=== PATIENT | female | born 1930 | race Hispanic/Latino ===

== ENCOUNTER 2017-07-22 10:12 | Inpatient (IN) | payer OTHER ==
[2017-07-22 11:28] LABS: Absolute Lymphocytes (CBC) 1.5 K/uL (0.7-4.9); Absolute Monocytes 0.6 K/uL (0.1-1.3); Absolute Neutrophil 3.3 K/uL (1.8-8.0); Eosinophils % 4.6 % (0-4.4); Hematocrit 40.3 % (36.0-45.0); Lymphocytes % 26.8 % (15.3-44.8); MCH 31.2 pg (27.0-35.0); MCV 93.9 fL (80-100); MPV 10.2 fL (7.6-11.3); Monocytes % 9.9 % (3.3-12.3); RBC Red Blood Cell Count 4.29 M/uL (3.86-4.86)
--- NOTE | 2017-07-22 11:28 | EDPHYS ---
Physician Documentation [facility] Name: Grisel Ray Age: 87 yrs Sex: Female : 1930 Arrival Date: 07/22/2017 Time: 10:15 Bed 2 Private MD: ED Physician Fransico Rodriguez HPI: 07/22 11:23 This 87 yrs old Female presents to ER via Ambulatory with complaints of Chest prabhakar Pain, High Blood Pressure. 11:23 The patient or guardian reports chest pain that is located primarily in the substernal prabhakar area, anterior chest wall. Onset: 3 day(s) ago. The pain does not radiate. Associated signs and symptoms: The patient has no apparent associated signs or symptoms. The chest pain is described as squeezing. Duration: The patient or guardian reports multiple episodes, with no pattern. Modifying factors: The symptoms are alleviated by nothing. the symptoms are aggravated by nothing. Severity of pain: At its worst the pain was mild moderate in the emergency department the pain is unchanged. The patient has experienced similar episodes in the past, a few times. Historical: - Allergies: 10:31 No Known Allergies; hb - Home Meds: 10:31 levothyroxine 75 mcg tab 1 tab once daily [Active]; hb 11:06 Protonix 40 mg Oral TbEC 1 tab once daily [Active]; sv - PMHx: 10:31 Hypertension; Hypothyroidism; hb - PSHx: 10:31 Cholecystectomy; hb - Immunization history:: Adult Immunizations up to date. - Social history:: Smoking status: Patient/guardian denies using tobacco. - Family history:: not pertinent. ROS: 11:23 Constitutional: Negative for fever, chills, and weight loss, Eyes: Negative for injury, prabhakar pain, redness, and discharge, ENT: Negative for injury, pain, and discharge, Neck: Negative for injury, pain, and swelling, Respiratory: Negative for shortness of breath, cough, wheezing, and pleuritic chest pain, Abdomen/GI: Negative for abdominal pain, nausea, vomiting, diarrhea, and constipation, Back: Negative for injury and pain, : Negative for injury, bleeding, discharge, and swelling, MS/Extremity: Negative for injury and deformity, Skin: Negative for injury, rash, and discoloration, Neuro: Negative for headache, weakness, numbness, tingling, and seizure, Psych: Negative for depression, anxiety, suicide ideation, homicidal ideation, and hallucinations, Allergy/Immunology: Negative for hives, rash, and allergies, Endocrine: Negative for neck swelling, polydipsia, polyuria, polyphagia, and marked weight changes, Hematologic/Lymphatic: Negative for swollen nodes, abnormal bleeding, and unusual bruising. 11:23 Cardiovascular: Positive for chest pain, with cough. Exam: 11:23 Constitutional: This is a well developed, well nourished patient who is awake, alert, prabhakar and in no acute distress. Head/Face: Normocephalic, atraumatic. Eyes: Pupils equal round and reactive to light, extra-ocular motions intact. Lids and lashes normal. Conjunctiva and sclera are non-icteric and not injected. Cornea within normal limits. Periorbital areas with no swelling, redness, or edema. ENT: Nares patent. No nasal discharge, no septal abnormalities noted. Tympanic membranes are normal and external auditory canals are clear. Oropharynx with no redness, swelling, or masses, exudates, or evidence of obstruction, uvula midline. Mucous membranes moist. Neck: Trachea midline, no thyromegaly or masses palpated, and no cervical lymphadenopathy. Supple, full range of motion without nuchal rigidity, or vertebral point tenderness. No Meningismus. Chest/axilla: Normal chest wall appearance and motion. Nontender with no deformity. No lesions are appreciated. Cardiovascular: Regular rate and rhythm with a normal S1 and S2. No gallops, murmurs, or rubs. Normal PMI, no JVD. No pulse deficits. Respiratory: Lungs have equal breath sounds bilaterally, clear to auscultation and percussion. No rales, rhonchi or wheezes noted. No increased work of breathing, no retractions or nasal flaring. Abdomen/GI: Soft, non-tender, with normal bowel sounds. No distension or tympany. No guarding or rebound. No evidence of tenderness throughout. Back: No spinal tenderness. No costovertebral tenderness. Full range of motion. Skin: Warm, dry with normal turgor. Normal color with no rashes, no lesions, and no evidence of cellulitis. MS/ Extremity: Pulses equal, no cyanosis. Neurovascular intact. Full, normal range of motion. Neuro: Awake and alert, GCS 15, oriented to person, place, time, and situation. Cranial nerves II-XII grossly intact. Motor strength 5/5 in all extremities. Sensory grossly intact. Cerebellar exam normal. Normal gait. Psych: Awake, alert, with orientation to person, place and time. Behavior, mood, and affect are within normal limits. Vital Signs: 10:30 BP 223 / 109; Pulse 89; Resp 18; Temp 98; Pulse Ox 96% on R/A; Pain 0/10; hb 11:30 BP 203 / 94; Pulse 74; Resp 15; Pulse Ox 96% on R/A; sv 11:43 Weight 65.77 kg; sv 12:00 BP 185 / 109; Pulse 78; Resp 20; Pulse Ox 96% on R/A; sv 12:30 BP 175 / 68; Pulse 74; Resp 17; Pulse Ox 95% ; sv 13:00 BP 195 / 62; Pulse 74; Resp 36; Pulse Ox 96% on 2 lpm NC; sv 13:30 BP 154 / 74; Pulse 61; Resp 21; Pulse Ox 97% on 2 lpm NC; sv 14:15 BP 108 / 51; Pulse 55 MON; Resp 16; Pulse Ox 98% on 2 lpm NC; sv 14:15 Sinus bradycardia with Occasional PVCs sv MDM: 10:52 Patient medically screened. [facility] 11:38 Data reviewed: vital signs, nurses notes, lab test result(s), EKG, radiologic studies, prabhakar plain films. 07/22 10:46 Order name: Basic Metabolic Panel; Complete Time: 13:07/22 10:46 Order name: BNP; Complete Time: 13:07/22 10:46 Order name: CBC with Diff; Complete Time: 11:38 07/22 10:46 Order name: Ckmb; Complete Time: 13:07/22 10:46 Order name: CPK; Complete Time: 13:07/22 10:46 Order name: LFT's; Complete Time: 13:07/22 10:46 Order name: Magnesium; Complete Time: 13:07/22 10:46 Order name: PT-INR; Complete Time: 13:03 07/22 10:46 Order name: Ptt, Activated; Complete Time: 13:03 07/22 10:46 Order name: Troponin (emerg Dept Use Only); Complete Time: 13:03 sv 07/22 10:52 Order name: Lipase prabhakar 07/22 10:52 Order name: TSH prabhakar 07/22 11:39 Order name: Basic Metabolic Panel EDMS 07/22 11:39 Order name: Basic Metabolic Panel EDMS 07/22 10:46 Order name: XRAY Chest (1 view); Complete Time: 13:03 sv 07/22 11:39 Order name: Echo with Doppler EDMS 07/22 11:39 Order name: CBC with Automated Diff EDMS 07/22 11:39 Order name: CBC with Automated Diff EDMS 07/22 11:39 Order name: Troponin I EDMS 07/22 11:39 Order name: Troponin I EDMS 07/22 11:39 Order name: Troponin I EDMS 07/22 11:39 Order name: Chest Single View EDMS 07/22 11:39 Order name: Chest Single View EDMS 07/22 13:54 Order name: T4 Free EDMS 07/22 10:46 Order name: EKG; Complete Time: 10:47 sv 07/22 10:46 Order name: Cardiac monitoring; Complete Time: 11:08 sv 07/22 10:46 Order name: EKG - Nurse/Tech; Complete Time: 11:08 sv 07/22 10:46 Order name: IV Saline Lock; Complete Time: 11:08 sv 07/22 10:46 Order name: Labs collected and sent; Complete Time: 11:08 sv 07/22 10:46 Order name: O2 Per Protocol; Complete Time: 11:08 sv 07/22 10:46 Order name: O2 Sat Monitoring; Complete Time: 11:08 sv 07/22 11:39 Order name: CONS Physician Consult EDMS 07/22 11:39 Order name: CONS Physician Consult EDMS 07/22 11:39 Order name: Consistent Carb (ADA) [address] EDMS 07/22 11:39 Order name: EKG Electrocardiogram EDMS 07/22 11:39 Order name: EKG Electrocardiogram EDMS 07/22 11:39 Order name: EKG Electrocardiogram EDMS 07/22 11:39 Order name: EKG Electrocardiogram EDMS 07/22 13:03 Order name: EKG; Complete Time: 13:03 prabhakar 07/22 13:03 Order name: EKG - Nurse/Tech; Complete Time: 13:22 prabhakar Administered Medications: 12:00 Drug: NS 0.9% 1000 ml Route: IV; Rate: 75 ml/hr; Site: left forearm; sv 14:20 Follow up: Response: No adverse reaction; IV Status: Infusion continued upon admission sv 12:00 Drug: Lopressor (metoprolol TARTRATE) 50 mg Route: PO; sv 12:30 Follow up: Response: No adverse reaction sv 12:00 Drug: hydrALAZINE 10 mg Route: PO; sv 12:30 Follow up: Response: No adverse reaction sv 12:00 Drug: Aspirin 162 mg Route: PO; sv 12:30 Follow up: Response: No adverse reaction sv 12:02 Drug: hydrALAZINE 10 mg Route: IV; Rate: per protocol; Site: left forearm; sv 12:04 Follow up: Response: No adverse reaction; IV Status: Completed infusion; IV Intake: sv 0.5ml 12:04 Drug: Pepcid 20 mg Route: IVP; Site: left forearm; sv 12:30 Follow up: Response: No adverse reaction sv 12:06 Drug: Zofran 4 mg Route: IVP; Site: left forearm; sv 12:30 Follow up: Response: No adverse reaction sv 12:08 Drug: morphine 2 mg Route: IVP; Site: left forearm; sv 12:30 Follow up: Response: No adverse reaction sv 12:11 Drug: Lovenox 1 mg/kg Route: Sub-Q; Site: left lower abdomen; sv 12:30 Follow up: Response: No adverse reaction sv 13:08 Drug: hydrALAZINE 10 mg Route: IV; Rate: per protocol; Site: left forearm; sv 13:10 Follow up: IV Status: Completed infusion; IV Intake: 0.5ml sv 14:02 Follow up: Response: No adverse reaction sv 13:08 Drug: Nitro-Bid Ointment 2 % 1 inches Route: Transdermal; Site: anterior chest wall; sv 13:16 Drug: Zofran 4 mg Route: IVP; Site: left forearm; sv 14:03 Follow up: Response: No adverse reaction sv 13:18 Drug: morphine 2 mg Route: IVP; Site: left forearm; sv 14:03 Follow up: Response: No adverse reaction sv 13:22 CANCELLED (Duplicate Order): morphine 2 mg IVP once sv 13:22 CANCELLED (Duplicate Order): Zofran 4 mg IVP once; over 2 minutes sv 14:02 Not Given (not needed at this time): morphine 2 mg IVP once sv Disposition: 07/22/17 11:27 Hospitalization ordered by Titus Coats for Inpatient Admission. Preliminary diagnosis are Other chest pain, Essential (primary) hypertension. - Bed requested for Telemetry/MedSurg (Inpatient). - Status is Inpatient Admission. sv - Condition is Stable. - Problem is new. - Symptoms have improved. UTI on Admission? No Signatures: Dispatcher [employer] EDMS Odalis Mccray Stephanie, RN RN Fransico Gonzalez MD MD cha Baxter, Heather, RN RN Corrections: (The following items were deleted from the chart) 13:13 11:27 Hospitalization Ordered by A Pauly CARRERO for Inpatient Admission. Preliminary bd diagnosis is Other chest pain; Essential (primary) hypertension. Bed requested for Telemetry/MedSurg (Inpatient). Status is Inpatient Admission. Condition is Stable. Problem is new. Symptoms have improved. UTI on Admission? No. prabhakar 13:22 13:11 morphine 2 mg IVP once ordered. formerly [facility] 13:22 13:11 Zofran 4 mg IVP once; over 2 minutes ordered. [facility] sv 14:45 13:13 07/22/2017 11:27 Hospitalization Ordered by A Pauly CARRERO for Inpatient Admission. sv Preliminary diagnosis is Other chest pain; Essential (primary) hypertension. Bed requested for Telemetry/MedSurg (Inpatient). Status is Inpatient Admission. Condition is Stable. Problem is new. Symptoms have improved. UTI on Admission? No. bd
--- NOTE | 2017-07-22 11:28 | ER ---
Nurse's Notes [facility] Name: Grisel Ray Age: 87 yrs Sex: Female : 1930 Arrival Date: 07/22/2017 Time: 10:15 Bed 2 Private MD: Diagnosis: Other chest pain;Essential (primary) hypertension Presentation: 07/22 10:27 Presenting complaint: Patient states: Intermittent dull left sided chest pain and SOB x hb 1 week. Transition of care: patient was not received from another setting of care. Onset of symptoms is unknown. Initial Sepsis Screen: Does the patient meet any 2 criteria? No. Patient's initial sepsis screen is negative. Does the patient have a suspected source of infection? No. Patient's initial sepsis screen is negative. Care prior to arrival: None. 10:27 Method Of Arrival: Ambulatory hb 10:27 Acuity: DAYRON 3 hb Historical: - Allergies: 10:31 No Known Allergies; hb - Home Meds: 10:31 levothyroxine 75 mcg tab 1 tab once daily [Active]; hb 11:06 Protonix 40 mg Oral TbEC 1 tab once daily [Active]; sv - PMHx: 10:31 Hypertension; Hypothyroidism; hb - PSHx: 10:31 Cholecystectomy; hb - Immunization history:: Adult Immunizations up to date. - Social history:: Smoking status: Patient/guardian denies using tobacco. - Family history:: not pertinent. Screenin:50 Abuse screen: Denies threats or abuse. Denies injuries from another. Nutritional sv screening: No deficits noted. Tuberculosis screening: No symptoms or risk factors identified. Fall Risk None identified. Assessment: 10:50 General: Appears uncomfortable, well developed, Behavior is calm, cooperative, sv appropriate for age. Pain: Complains of pain in left nipple Pain radiates to left arm Pain currently is 2 out of 10 on a pain scale. Quality of pain is described as dull, Pain began 2-3 days ago. Is intermittent, Alleviated by nothing. Aggravated by exercise, increased activity. Neuro: Level of Consciousness is awake, alert, obeys commands, Oriented to person, place, time, situation, Moves all extremities. Full function Speech is normal. Cardiovascular: Heart tones S1 S2 present Capillary refill < 3 seconds is brisk in bilateral fingers Patient's skin is warm and dry. Pulses are 3+ in right radial artery and left radial artery Rhythm is sinus rhythm with couplets. Respiratory: Reports shortness of breath at rest on exertion Respiratory effort is even, unlabored, Respiratory pattern is regular, symmetrical, Breath sounds are clear bilaterally. GI: No signs and/or symptoms were reported involving the gastrointestinal system. : No signs and/or symptoms were reported regarding the genitourinary system. EENT: No signs and/or symptoms were reported regarding the EENT system. Derm: Skin is pink, warm \T\ dry. Musculoskeletal: Range of motion: intact in all extremities. 11:06 Reassessment: Pt was told by her PCP to stop taking Norvasc 5 mg BID, Tramterene/HCTZ sv 37.5/25 mg daily, Metoprolol succ 50 mg daily about 2 weeks ago. 12:00 Reassessment: Patient appears in no apparent distress at this time. No changes from sv previously documented assessment. Patient and/or family updated on plan of care and expected duration. Pain level reassessed. Patient is alert, oriented x 3, equal unlabored respirations, skin warm/dry/pink. 13:05 Cardiovascular: Chest pain is described as severe, Pain is 8 out of 10 on a pain scale. sv quality is sharp, is located in left anterior chest wall began suddenly, episodes are continuous Informed Dr Rodriguez, orders given.. 14:16 Reassessment: Patient appears in no apparent distress at this time. Patient and/or sv family updated on plan of care and expected duration. Pain level reassessed. Patient is alert, oriented x 3, equal unlabored respirations, skin warm/dry/pink. Patient denies pain at this time. Patient states feeling better. Patient states symptoms have improved. Vital Signs: 10:30 BP 223 / 109; Pulse 89; Resp 18; Temp 98; Pulse Ox 96% on R/A; Pain 0/10; hb 11:30 BP 203 / 94; Pulse 74; Resp 15; Pulse Ox 96% on R/A; sv 11:43 Weight 65.77 kg; sv 12:00 BP 185 / 109; Pulse 78; Resp 20; Pulse Ox 96% on R/A; sv 12:30 BP 175 / 68; Pulse 74; Resp 17; Pulse Ox 95% ; sv 13:00 BP 195 / 62; Pulse 74; Resp 36; Pulse Ox 96% on 2 lpm NC; sv 13:30 BP 154 / 74; Pulse 61; Resp 21; Pulse Ox 97% on 2 lpm NC; sv 14:15 BP 108 / 51; Pulse 55 MON; Resp 16; Pulse Ox 98% on 2 lpm NC; sv 14:15 Sinus bradycardia with Occasional PVCs sv ED Course: 10:15 Patient arrived in ED. mr 10:30 Triage completed. hb 10:31 Arm band placed on left wrist. hb 10:44 EKG done, by quality assurance tech. reviewed by Fransico Rodriguez MD. sm3 10:45 Macie Pantoja, RN is Primary Nurse. sv 10:50 Patient has correct armband on for positive identification. Placed in gown. Bed in low sv position. Call light in reach. Side rails up X2. Adult w/ patient. monitor worker on. Pulse ox on. NIBP on. Door closed. Warm blanket given. Pillow given. Head of bed elevated. 10:51 Fransico Rodriguez MD is Attending Physician. prabhakar 11:00 Initial lab(s) drawn, by ga, sent to lab. Inserted saline lock: 20 gauge in left sv forearm, using aseptic technique. Blood collected. Flushed left forearm with 5 ml normal saline. 11:25 Titus Coats MD is Hospitalizing Provider. prabhakar 11:38 X-ray completed. Portable x-ray completed in exam room. Patient tolerated procedure mh1 well. 11:42 XRAY Chest (1 view) In Process Unspecified. EDMS 13:00 Oxygen administration via nasal cannula \T\ 2L/min. sv 13:16 EKG done, by quality assurance tech. reviewed by Fransico Rodriguez MD. 3 14:16 No provider procedures requiring assistance completed. Patient admitted, IV remains in sv place. intact. Administered Medications: 12:00 Drug: NS 0.9% 1000 ml Route: IV; Rate: 75 ml/hr; Site: left forearm; sv 14:20 Follow up: Response: No adverse reaction; IV Status: Infusion continued upon admission sv 12:00 Drug: Lopressor (metoprolol TARTRATE) 50 mg Route: PO; sv 12:30 Follow up: Response: No adverse reaction sv 12:00 Drug: hydrALAZINE 10 mg Route: PO; sv 12:30 Follow up: Response: No adverse reaction sv 12:00 Drug: Aspirin 162 mg Route: PO; sv 12:30 Follow up: Response: No adverse reaction sv 12:02 Drug: hydrALAZINE 10 mg Route: IV; Rate: per protocol; Site: left forearm; sv 12:04 Follow up: Response: No adverse reaction; IV Status: Completed infusion; IV Intake: sv 0.5ml 12:04 Drug: Pepcid 20 mg Route: IVP; Site: left forearm; sv 12:30 Follow up: Response: No adverse reaction sv 12:06 Drug: Zofran 4 mg Route: IVP; Site: left forearm; sv 12:30 Follow up: Response: No adverse reaction sv 12:08 Drug: morphine 2 mg Route: IVP; Site: left forearm; sv 12:30 Follow up: Response: No adverse reaction sv 12:11 Drug: Lovenox 1 mg/kg Route: Sub-Q; Site: left lower abdomen; sv 12:30 Follow up: Response: No adverse reaction sv 13:08 Drug: hydrALAZINE 10 mg Route: IV; Rate: per protocol; Site: left forearm; sv 13:10 Follow up: IV Status: Completed infusion; IV Intake: 0.5ml sv 14:02 Follow up: Response: No adverse reaction sv 13:08 Drug: Nitro-Bid Ointment 2 % 1 inches Route: Transdermal; Site: anterior chest wall; sv 13:16 Drug: Zofran 4 mg Route: IVP; Site: left forearm; sv 14:03 Follow up: Response: No adverse reaction sv 13:18 Drug: morphine 2 mg Route: IVP; Site: left forearm; sv 14:03 Follow up: Response: No adverse reaction sv 13:22 CANCELLED (Duplicate Order): morphine 2 mg IVP once sv 13:22 CANCELLED (Duplicate Order): Zofran 4 mg IVP once; over 2 minutes sv 14:02 Not Given (not needed at this time): morphine 2 mg IVP once sv Intake: 12:04 IV: 1ml; Total: 1ml. sv 13:10 IV: 1ml; Total: 1ml. sv Outcome: 11:27 Decision to Hospitalize by Provider. prabhakar 14:17 Admitted to Tele accompanied by tech, via stretcher, room 426, with oxygen, with chart, sv Report called to Lacy SMITH 14:17 Condition: stable 14:17 Condition: improved 14:17 Instructed on the need for admit. 14:45 Patient left the ED. sv Signatures: Dispatcher [employer] Macie Mattson RN RN sv Anderson, Corey, MD MD cha Rivera, Maria mr SatyaYarelis 1 Purnima Sanders RN RN Siena Silva 3
[2017-07-22] MEDS ORDERED: Morphine 2 MG/2 ML SYR IV PRN (11:33)
[2017-07-22] MEDS ORDERED: ONDANSETRON 4 MG/2 ML VIAL IV PRN (11:33)
[2017-07-22 11:38] LABS: Protime INR 1.02
[2017-07-22] MEDS ORDERED: ASPIRIN 81 MG CHEWABLE TABLET ONE (11:46)
[2017-07-22] MEDS ORDERED: FAMOTIDINE 20 MG/2 ML VIAL IV ONE (11:47)
[2017-07-22] MEDS ORDERED: HYDRALAZINE HCL 20 MG/ML VIAL ONE ×2 (11:47→13:06)
[2017-07-22] MEDS ORDERED: NA CHLORIDE 0.9% 1,000 ML ONE (11:47)
[2017-07-22] MEDS ORDERED: Morphine 2 MG/2 ML SYR ONE ×2 (11:48→13:16)
[2017-07-22] MEDS ORDERED: ENOXAPARIN 60 MG/0.6 ML SQ ONE (11:49)
[2017-07-22 11:51] LABS: CKMB Creatine Kinase MB 1.3 ng/ml (0.3-4.0); Potassium 3.6 mEq/L (3.6-5.0)
[2017-07-22 11:57] LABS: Bilirubin Direct 0.2 mg/dL (0-0.2); Bilirubin Total 1.1 mg/dL (0.3-1.2); Magnesium 1.8 mg/dL (1.8-2.5)
--- NOTE | 2017-07-22 12:45 | RAD REPORT ---
EXAM DESCRIPTION: RAD - Chest Single View - 07/22/2017 11:41 am CLINICAL HISTORY: Chest pain. COMPARISON: 09/17/2016 FINDINGS: Portable technique limits examination quality. The lungs are emphysematous but grossly clear. The heart is normal in size. No displaced fractures.Le voscoliosis is present of the spine. IMPRESSION: COPD.
[2017-07-22 13:00] LABS: Thyroid Stimulating Hormone 8.47 uIU/mL (0.34-5.60)
[2017-07-22] MEDS ORDERED: NITROGLYCERIN 1 GM PKT TD ONE ×2 (13:04→13:15)
[2017-07-22] MEDS ORDERED: ONDANSETRON 4 MG/2 ML VIAL ONE (13:15)
--- NOTE | 2017-07-22 14:39 | EKG ---
Test Date: 2017-07-22 Test Time: 13:16:00 Basket Machine Operator: HAN MEASUREMENT RESULTS: Intervals: Rate: 70 KS: 176 QRSD: 88 QT: 438 QTc: 473 [place]: P: 52 KS: 176 QRS: 8 T: 23 INTERPRETIVE STATEMENTS: Sinus rhythm with frequent premature ventricular complexes in a pattern of bigeminy Abnormal ECG Compared to ECG 07/22/2017 10:44:16 ST (T wave) deviation no longer present Electronically Signed On 07-22-17 14:38:46 CDT by Lars Correia
--- NOTE | 2017-07-22 14:42 | EKG ---
Test Date: 2017-07-22 Test Time: 10:44:16 Dining Service Worker: HAN MEASUREMENT RESULTS: Intervals: Rate: 81 [place]: 176 QRSD: 90 QT: 400 QTc: 464 Baxter: P: 50 AZ: 176 QRS: 22 T: -16 INTERPRETIVE STATEMENTS: Sinus rhythm with occasional premature ventricular complexes Nonspecific ST and T wave abnormality Abnormal ECG Compared to ECG 09/18/2016 02:38:01 ST (T wave) deviation now present T-wave abnormality no longer present Prolonged QT interval no longer present Electronically Signed On 07-22-17 14:42:01 CDT by Lars Correia
[2017-07-22 14:54] VITALS: BMI 29.0
[2017-07-22] MEDS ORDERED: PNEUMOCOCCAL VACCINE 0.5 ML IMVAC ONE (16:00)
--- NOTE | 2017-07-22 16:57 | CON ---
Identification: An 87-year-old woman. Chief Complaint: Chest pain. History Of Present Illness: Ms. Ray is a woman, who has not had heart disease before. She has underlying hypertension hypothyroidism, takes Protonix, levothyroxine, triamterene, and hydrochlorot hiazide daily. She has never been diagnosed with myocardial infarction or stroke. About a year ago, she was in at our hospital and had normal echo and stress test. She does not use tobacco. Does not have diabetes or dyslipidemia. The pain she has is the upper part of her chest feels like there is heaviness. It was bad about 2 hours ago, went away without any apparent thing, that was the relievin g factor. Since being here in the hospital, an echocardiogram reveals premature ventricular complexe s. There is an ST depression on her first EKG and for the most part improved or disappeared by the s econd one. Since being here, her troponins are normal. She has mildly elevated TSH suggesting perha ps the dose of thyroid medicine she is on is inadequate or she has been missing doses. Physical Examination: Vital Signs: 5 Feet tall, 149 pounds, body mass index 29.1. HEENT: Unremarkable. NECK: Carotids; no bruit. Lungs: Clear. CARDIAC: Within normal limits. EXTREMITIES: Palpable, but diminished distal pulses. Impression: The patient's chest pain could be due to ischemic heart disease. It is probably best to consider strictly medical therapy for her rather than interventional because of her age, but we coul d get an idea if there is very severe CAD by doing a pharmacologic nuclear stress test. We will do that desahwn VILLASENOR/SARAH Voice ID: [id number] Report ID: [id number]
[2017-07-22] MEDS: METOPROLOL TAR 50 MG TAB PO SCH (21:50)
[2017-07-22] MEDS: FAMOTIDINE 20 MG TAB PO SCH (21:51)
[2017-07-22] MEDS: HYDRALAZINE HCL 10 MG TABLET PO SCH (21:51)
[2017-07-23] MEDS: ACETAMINOPHEN 500 MG TAB PO PRN ×2 (04:19→11:41)
[2017-07-23 06:08] LABS: Absolute Lymphocytes (CBC) 1.2 K/uL (0.7-4.9); Absolute Monocytes 0.7 K/uL (0.1-1.3); Absolute Neutrophil 4.1 K/uL (1.8-8.0); Basophils % 1.1 % (0-1.3); Eosinophils % 2.5 % (0-4.4); Hematocrit 35.6 % (36.0-45.0); Lymphocytes % 19.1 % (15.3-44.8); MCH 31.1 pg (27.0-35.0); MCV 94.8 fL (80-100); MPV 9.9 fL (7.6-11.3); RBC Red Blood Cell Count 3.76 M/uL (3.86-4.86)
[2017-07-23 06:16] LABS: Potassium 3.7 mEq/L (3.6-5.0)
--- NOTE | 2017-07-23 06:43 | HP ---
Date of Admission: 07/22/2017 Chief Complaint: Chest pain. History Of Present Illness: This is an 87-year-old female patient, who presented to emergency room w ith complaints of chest pain for last 2-3 days. The patient says pain has been intermittent, located in the center and slightly left to the sternal area. No aggravating or relieving factors. [place] kulwinder short of breath with the chest pain. No fever or chills. No expectoration. No radiation of lang n. She came into the emergency room. Her blood pressure initially was extremely elevated 223/109. After she was treated in the emergency room, I was contacted requesting admission to the hospital. C ardiology consultation has been obtained. Allergies: NO KNOWN ALLERGIES. Review of Systems: Cardiovascular: As mentioned above. All other systems reviewed and negative. Medications: List reviewed. Past Medical History: Osteoarthritis, hypothyroidism, hypertension, hyperlipidemia. Past Surgical History: Cholecystectomy, removal of ovarian cyst, and knee replacement. Family History: Significant for diabetes mellitus, liver cancer, kidney cancer. Social History: Prior history of smoking, not at present time. Use of alcohol, occasionally has one drink, otherwise negative. Physical Examination: Vital Signs: Temperature 98, pulse 89, respiratory rate 18, blood pressure 223/109, oxygen saturatio n 96%. Height 5 feet. Weight 149 pounds. General: Awake, alert, oriented, not in distress. HEENT: Head atraumatic, normocephalic. Conjunctivae nonerythematous. Sclerae white. Mouth, no thr ush or edema noted. Ears/Nose, no mass, lesion, discharge noted. Neck: Supple. No JVD, lymph nodes, bruit, thyromegaly noted. Lungs: Bilateral good equal air entry. Clear to auscultation. No rhonchi. No rales. Heart: Normal heart sounds, no murmur or gallop. Abdomen: Soft, bowel sounds normal. No guarding, rigidity, tenderness, mass, hepatosplenomegaly, dis tention, or bruit noted. Extremities: No leg edema. No calf tenderness. Skin: No rash, ulcer, cellulitis. Lymphatics: No lymph node enlargement in neck, supraclavicular, infraclavicular region. Neuro: No focal neurological deficit. Chest: Unremarkable. External Genitalia: Deferred. Rectal: Deferred. Laboratory Data: White count 5.7, hemoglobin 13.4, platelets 198. INR 1.02. Sodium 141, potassium 3.6, chloride 106, bicarb 26. BUN 14, creatinine 0.76. Glucose 95. Liver function tests unremarkab le. Troponin less than 0.03. TSH 8.47. Lipase 24. Chest x-ray shows changes of chronic obstructiv e pulmonary disease, sinus rhythm, occasional premature ventricular complex, nonspecific ST-T changes . Impression: 1.Chest pain. 2.Hypertension, uncontrolled. 3.Hypothyroidism. 4.Hyperlipidemia. 5.Osteoarthritis, multiple sites. Plan: We will admit the patient to the hospital for further evaluation on this problem to telemetry floor. Consult Cardiology. Serial cardiac enzymes will be obtained. Adjust antihypertension medica tions per order. We will follow up with the senior loan processor. Tomorrow, patient will have echocardiogra m and a stress test. Plan of treatment discussed with her. I will see her in the morning for followup. HOUSTON/SARAH Voice ID: [id number]
--- NOTE | 2017-07-23 07:10 | RAD REPORT ---
EXAM DESCRIPTION: RAD - Chest Single View - 07/23/2017 6:30 am CLINICAL HISTORY: Chest pain COMPARISON: July 22 TECHNIQUE: AP portable chest image was obtained 0616 hours . FINDINGS: No peripheral mass or consolidation seen. Fibrotic lung changes are present with no new or progressive finding identifiable. Heart size is upper normal, stable from prior imaging, with no vas cular engorgement. Trachea is midline. No measurable pleural effusion and no pneumothorax. No gross b vaishali abnormality seen. No acute aortic findings suspected. IMPRESSION: Fibrotic lung pattern similar to the prior study. No new or progressive finding.
[2017-07-23] MEDS ORDERED: REGADENOSON 0.4 MG/5 ML SYR IV ONE (07:33)
[2017-07-23] MEDS: AMLODIPINE 5 MG TAB PO SCH (10:57)
[2017-07-23] MEDS: FAMOTIDINE 20 MG TAB PO SCH ×2 (10:58→21:42)
[2017-07-23] MEDS: ASPIRIN EC 81 MG TAB PO SCH (10:58)
[2017-07-23] MEDS: HYDRALAZINE HCL 10 MG TABLET PO SCH ×2 (10:58→21:42)
[2017-07-23] MEDS: METOPROLOL TAR 50 MG TAB PO SCH (10:59)
[2017-07-23] MEDS: MAXZIDE (HCTZ 25/TRIAMTERENE 37.5MG) TAB PO SCH (11:42)
--- NOTE | 2017-07-23 11:43 | RAD REPORT ---
EXAM DESCRIPTION: NM - Rest Stress Cardiac Imaging - 07/23/2017 11:28 am CLINICAL HISTORY: Chest pain COMPARISON: None. TECHNIQUE: The patient was administered 10.8 mCi of Tc 99m Sestamibi prior to resting SPECT imaging of the heart. The patient was then administered 30.9 mCi of Tc 99m Sestamibi following exercise or ph armacologic stress. Multiplanar SPECT images were reviewed. FINDINGS: The end diastolic volume is 80 ml, the end systolic volume is 18 ml, and the ejection frac tion is 78 %. No stress-induced ischemic changes identifiable. Minimal focus of diminished activity along the anter ior wall at the apex does not change between rest and stress imaging. This could be a small focus of scarring or more likely a breast attenuation artifact. IMPRESSION: No stress-induced ischemic change. Minimal focus of fixed perfusion abnormality anterior wall near the apex could be scarring or breast attenuation artifact. Ventricular volumes and ejection fraction are normal range.
--- NOTE | 2017-07-23 12:58 | TREADPHA ---
DX: CHEST PAIN Date of Study: 07/23/17 Ht: 5 0 Wt: 149 lb 0 oz Consulting Physician: CLEMENTINE MEDICATIONS: TYLENOL, WORVASC, ASPIRIN, PEPCID, APRESOLINE, LOPRESSOR, ZOFRAN HISTORY: 87 YEAR OLD WOMAN WITH CHEST PAIN. 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 NON SPECIFIC T WAVE ABNORMALITY PROTOCOL: LEXISCAN EXERCISE TIME: 3:30 B.P. AT [place]AK STRESS: 157/65 IMPRESSION: LEXISCAN STRESS TEST PERFORMED. CARDIOLITE INJECTED PER PROTOCL. NO SUPRA VENTRICULAR TACHYCARDIA OR VENTRICULAR TACHYCARDIA NOTED. FREQUENT TO OCCASIONAL PREMATURE VENTRICULAR COMPLEXES NOTED. NO COMPLAINTS VERBALIZED. NON DIAGNOSTIC EKG WITH LEXISCAN STRESS.
--- NOTE | 2017-07-23 15:44 | ECHO ---
HEIGHT: 5 ft 0 in WEIGHT: 149 lb 0 oz DATE OF STUDY: 07/23/[address]: Fransico Rodriguez MD 2-DIMENSIONAL: YES M.MODE: YES DOPPLER: YES COLOR FLOW: YES TDS: YES PORTABLE: NO DEFINITY: NO BUBBLE STUDY: NO DIAGNOSIS: CHEST PAIN CARDIAC HISTORY: CATHERIZATION: NO SURGERY: NO PROSTHETIC VALVE: NO PACEMAKER: NO MEASUREMENTS (cm) DIASTOLIC (NORMALS) SYSTOLIC (NORMALS) IVSd 1.2 (0.6-1.2) LA Diam 3.6 (1.9-4.0) LVEF 59% LVIDd 4.9 (3.5-5.7) LVIDs 3.3 (2.0-3.5) %FS 31% LVPWd 1.3 (0.6-1.2) Ao Diam 2.4 (2.0-3.7) 2 DIMENSIONAL ASSESSMENT: RIGHT ATRIUM: NORMAL LEFT ATRIUM: NORMAL RIGHT VENTRICLE: NORMAL LEFT VENTRICLE: NORMAL TRICUSPID VALVE: NORMAL MITRAL VALVE: MITRAL ANNULAR CALCIFICATION PULMONIC VALVE: NORMAL AORTIC VALVE: SCLEROSIS PERICARDIAL EFFUSION: NONE AORTIC ROOT: NORMAL LEFT VENTRICULAR WALL MOTION: NORMAL. DOPPLER/COLOR FLOW: MILD TRICUSPID REGURGITATION. COMMENTS: MILD TRICUSPID REGURGITATION. NORMAL LEFT VENTRICULAR SIZE AND FUNCTION. MITRAL ANNULAR CALCIFICATION. AORTIC SCLEROSIS. TECHNOLOGIST: YAHAIRA MCGEE
[2017-07-24] MEDS: METOPROLOL TAR 50 MG TAB PO SCH ×2 (00:02→09:12)
--- NOTE | 2017-07-24 01:04 | PN ---
Date of Progress Note: 07/23/2017 Subjective: The patient was seen this morning for followup. No new complaints or problems reported by the patient. Denies any chest pain this morning when I saw her. No nausea, vomiting. No shortne ss of breath. Objective: Vital Signs: Reviewed. HEENT: Examination unremarkable. Lungs: Clear to auscultation. Heart: Heart sounds normal. Abdomen: Soft, bowel sounds normal. No guarding, rigidity, tenderness, or distention. Extremities: No leg edema. Laboratory Data: White count 6.2, hemoglobin 11.7, platelets 180. Sodium 141, potassium 3.7, chlori de 108, bicarb 27, BUN 20, creatinine 0.99, glucose 90, troponin less than 0.03. Stress test came ba ck negative for stress-induced ischemia. Impression: 1.Hypertension, uncontrolled. 2.Chest pain. 3.Hypothyroidism. Plan: We will continue medications. Monitor blood pressure. Adjust antihypertensive medication. S tress test was reported as negative. We will see her tomorrow morning for followup. Possible discha rge to go home tomorrow depending on her condition. HOUSTON/MODL Voice ID: [id number] Report ID: [id number]
[2017-07-24 04:37] VITALS: O2SAT 91
[2017-07-24 08:08] VITALS: BP 140/63; TEMP 98.6
[2017-07-24] MEDS: ASPIRIN EC 81 MG TAB PO SCH (09:11)
[2017-07-24] MEDS: FAMOTIDINE 20 MG TAB PO SCH (09:11)
[2017-07-24] MEDS: AMLODIPINE 5 MG TAB PO SCH (09:12)
[2017-07-24] MEDS: MAXZIDE (HCTZ 25/TRIAMTERENE 37.5MG) TAB PO SCH (09:12)
[2017-07-24] MEDS: HYDRALAZINE HCL 10 MG TABLET PO SCH (09:12)
[2017-07-24] MEDS ORDERED: PNEUMOCOCCAL VACCINE 0.5 ML IMVAC ONE (10:00)
--- NOTE | 2017-07-25 10:53 | DS ---
Date of Discharge: 07/24/2017 Disposition: Discharged to go home. Physical Examination: HEENT: Unremarkable. Lungs: Clear to auscultation. Heart: Sounds normal. Abdomen: Soft, bowel sounds normal. No guarding, rigidity, tenderness, or distention. Extremities: No leg edema. Discharge Medications And Instructions: 1. Continue all prior home medications. 2. Continue new medication as prescribed for blood pressure, which is amlodipine, metoprolol, and losartan. 3. Follow up in my office in 2-3 weeks and the patient to bring all of her medication bottles with her at the time of followup visit. Hospital Course: An 87-year-old female patient, who was admitted to the hospital with chest pain and high blood pressure problem. Please see dictation for more information. After patient was evaluated in the emergency room, she was admitted to the hospital. Cardiology consultation was obtained from Dr. Correia. AL was ruled out by getting serial cardiac enzymes. The patient had echocardiogram done which showed normal ejection fraction and stress test done yesterday. Lexiscan stress test came back negative for stress-induced ischemia. Her antihypertensive medications were adjusted. Overall, blood pressure has come down to normal. The patient is not compliant with office followup visit and she was advised today to keep her regular appointment. Her TSH was elevated. I am not sure if she is taking her levothyroxine regularly or not but we will evaluate this on outpatient basis to see if we need to make further adjustment on levothyroxine or not. Final Diagnoses: 1. Chest pain. 2. Hypertension, uncontrolled. 3. Hyperlipidemia. 4. Hypothyroidism. 5. Osteoarthritis, multiple sites. HOUSTON/MODL Voice ID: [id number] Report ID: [id number] NATHALIE
== END 2017-07-24 09:41 | disposition home or self-care (01) | DRG 313 ==
LOC: ER 10:12 → ERHOLD 11:31 → 4TH 14:21
PROVIDERS: ADMIT Internal Medicine; ATTEND Internal Medicine
DX: R07.9 Chest pain, unspecified (principal); I10 Essential (primary) hypertension; E78.5 Hyperlipidemia, unspecified; E03.9 Hypothyroidism, unspecified; M19.90 Unspecified osteoarthritis, unspecified site; Z96.649 Presence of unspecified artificial hip joint; Z87.891 Personal history of nicotine dependence; Z23 Encounter for immunization
CPT/HCPCS: 36415; 71045; 78452; 80048; 80076; 82550; 82553; 83690; 83735; 83880; 84439; 84443; 84484; 85025; 85610; 85730; 90670; 93005; 93017; 93306; 96361; 96372; 96374; 96375; 99285; A9500; G0009; J0360; J1650; J2270; J2405; J2785; J7030

== ENCOUNTER 2017-08-18 13:25 | Inpatient (IN) | payer OTHER ==
[2017-08-18 13:56] LABS: Absolute Lymphocytes (CBC) 1.9 K/uL (0.7-4.9); Absolute Monocytes 1.9 K/uL (0.1-1.3); Absolute Neutrophil 10.4 K/uL (1.8-8.0); Basophils % 0.3 % (0-1.3); Eosinophils % 0.8 % (0-4.4); Hematocrit 39.3 % (36.0-45.0); Lymphocytes % 13.5 % (15.3-44.8); MCH 30.5 pg (27.0-35.0); MPV 10.3 fL (7.6-11.3); Monocytes % 13.5 % (3.3-12.3); RBC Red Blood Cell Count 4.23 M/uL (3.86-4.86)
[2017-08-18] MEDS ORDERED: NA CHLORIDE 0.9% 1,000 ML ONE (14:00)
[2017-08-18] MEDS ORDERED: CEFTRIAXONE/SWI 1gm 1 GM/10 ML SYR ONE (14:00)
[2017-08-18] MEDS ORDERED: NA CHLORIDE 0.9% 500 ML ONE (14:00)
[2017-08-18] MEDS ORDERED: FAMOTIDINE 20 MG/2 ML VIAL IV ONE (14:00)
[2017-08-18] MEDS ORDERED: ALBUTEROL 2.5 MG/3 ML NEB SOL ONE (14:00)
[2017-08-18] MEDS ORDERED: IPRATROPIUM BROM 0.5MG/2.5ML ONE (14:00)
[2017-08-18] MEDS ORDERED: METHYLPREDNISOLONE 125 MG INJ ONE (14:00)
[2017-08-18 14:06] LABS: Protime INR 1.08
[2017-08-18 14:10] LABS: Potassium 3.3 mEq/L (3.6-5.0)
[2017-08-18 14:16] LABS: Albumin 3.6 g/dL (3.2-5.5); Bilirubin Direct 0.2 mg/dL (0-0.2); Bilirubin Total 0.9 mg/dL (0.3-1.2); Magnesium 1.9 mg/dL (1.8-2.5); Protein, Total 7.7 g/dL (6.0-8.3)
[2017-08-18 14:18] LABS: CKMB Creatine Kinase MB 2.6 ng/ml (0.3-4.0)
--- NOTE | 2017-08-18 14:29 | RAD REPORT ---
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 The lungs appear clear of acute infiltrate. The heart is mildly enlarged IMPRESSION: No acute abnormalities displayed
[2017-08-18 14:48] LABS: Thyroid Stimulating Hormone 2.33 uIU/mL (0.34-5.60)
[2017-08-18] MEDS ORDERED: AZITHROMYCIN IV 500 MG in NA CHLORIDE 0.9% 250 ML IVPB ONE (15:00)
[2017-08-18] MEDS ORDERED: METOPROLOL TARTRATE 5 MG/5 ML INJ IV ONE (16:02)
[2017-08-18] MEDS ORDERED: METOPROLOL TAR 25 MG TAB ONE (16:02)
[2017-08-18] MEDS ORDERED: POTASSIUM CL SA 10 MEQ TAB PO ONE (16:02)
--- NOTE | 2017-08-18 16:08 | ER ---
Nurse's Notes [facility] Name: Grisel Ray Age: 87 yrs Sex: Female : 1930 Arrival Date: 08/18/2017 Time: 13:28 Bed 8 Private MD: Diagnosis: Acute upper respiratory infection, unspecified;Dyspnea;Atrial fibrillation and flutter;Unspecified kidney failure;Hypokalemia;Hypoxemia;Acute laryngitis;Pneumonia due to other specified bacteria-rioght lower lob Presentation: 08/18 13:28 Presenting complaint: EMS states: pt was discharged from here two weeks ago, the past ch week has felt weak. was better yesterday worse today. c/o productive cough, and feeling very lethargic and weak today. pt states she has been taking all of her medications, family states pt has not taken her home medications in the past week. Transition of care: patient was not received from another setting of care. Onset of symptoms was August 11, 2017. Risk Assessment: Do you want to hurt yourself or someone else? Patient reports no desire to harm self or others. Initial Sepsis Screen: Does the patient meet any 2 criteria? No. Patient's initial sepsis screen is negative. Does the patient have a suspected source of infection? No. Patient's initial sepsis screen is negative. Care prior to arrival: None. 13:28 Method Of Arrival: EMS: [facility] 13:28 Acuity: [place] 3 ch Triage Assessment: 13:52 General: Appears in no apparent distress. comfortable, Behavior is calm, cooperative, ch appropriate for age. Pain: Denies pain. EENT: Reports sore throat, feeling like she has the flu. Neuro: No deficits noted. Level of Consciousness is awake, alert, obeys commands, Oriented to person, place, time, situation, Hole Digger Truck Driver are equal bilaterally Moves all extremities. Weakness in bilateral Speech is normal, pt voice is hoarse, but no slurring of speech. . Facial symmetry appears normal, Facial symmetry: tongue is midline, Pupils are PERRLA, Reports weakness in right arm, left arm, right leg and left leg. Respiratory: Reports shortness of breath cough that is dry, hacking, persistent Airway is patent Respiratory effort is even, unlabored, Breath sounds are clear bilaterally. GI: No signs and/or symptoms were reported involving the gastrointestinal system. Derm: Skin is fragile, Skin is dry, Skin is pale. Musculoskeletal: No signs and/or symptoms reported regarding the musculoskeletal system. Historical: - Allergies: 13:32 No Known Drug Allergies; ch - Home Meds: 13:43 triamterene-hydrochlorothiazid 37.5-25 mg Oral tab 1 tab once daily [Active]; ch pantoprazole 40 mg oral TbEC 1 tab once daily [Active]; levothyroxine 100 mcg tab 1 tab once daily [Active]; 13:45 amlodipine 5 mg oral tab 1 tab once daily [Active]; metoprolol tartrate 50 mg Oral tab ch 1 tab 2 times per day [Active]; hydralazine 10 mg Oral tab 1 tab 2 times per day [Active]; - PMHx: 13:32 Hypertension; Hypothyroidism; ch 13:43 GERD; Hyperlipidemia; osteoarthritis; ch - PSHx: 13:32 Cholecystectomy; ch - Immunization history:: Adult Immunizations up to date. - Social history:: Smoking status: Patient/guardian denies using tobacco. - Ebola Screening: : Patient negative for fever greater than or equal to 101.5 degrees Fahrenheit, and additional compatible Ebola Virus Disease symptoms Patient denies exposure to infectious person Patient denies travel to an Ebola-affected area in the 21 days before illness onset No symptoms or risks identified at this time. Screenin:10 Abuse screen: Denies threats or abuse. Denies injuries from another. Nutritional ch screening: No deficits noted. Tuberculosis screening: No symptoms or risk factors identified. Fall Risk None identified. Assessment: 15:10 Reassessment: Patient appears in no apparent distress at this time. Patient and/or ch family updated on plan of care and expected duration. Pain level reassessed. Patient is alert, oriented x 3, equal unlabored respirations, skin warm/dry/pink. Patient states feeling better. Patient states symptoms have improved. Respiratory: Airway is patent Respiratory effort is even, unlabored, Breath sounds are clear bilaterally. 15:56 Reassessment: Patient appears in no apparent distress at this time. Patient and/or ch family updated on plan of care and expected duration. Pain level reassessed. Patient is alert, oriented x 3, equal unlabored respirations, skin warm/dry/pink. Patient denies pain at this time. Patient states feeling better. Patient states symptoms have improved. 16:20 Reassessment: Patient appears in no apparent distress at this time. Patient and/or ch family updated on plan of care and expected duration. Pain level reassessed. Patient is alert, oriented x 3, equal unlabored respirations, skin warm/dry/pink. Patient denies pain at this time. Patient states feeling better. Patient states symptoms have improved. 17:20 Reassessment: Patient appears in no apparent distress at this time. Patient and/or ch family updated on plan of care and expected duration. Pain level reassessed. Patient states feeling better. Patient states symptoms have improved. 17:44 Reassessment: Patient appears in no apparent distress at this time. Patient and/or ch family updated on plan of care and expected duration. Pain level reassessed. Patient is alert, oriented x 3, equal unlabored respirations, skin warm/dry/pink. pt verb understanding of admission. attempting to call report now. 18:05 Reassessment: Patient appears in no apparent distress at this time. Patient and/or ch family updated on plan of care and expected duration. Pain level reassessed. Patient is alert, oriented x 3, equal unlabored respirations, skin warm/dry/pink. report given to Floor RN Patient states feeling better. Patient states symptoms have improved. Vital Signs: 13:32 BP 165 / 114; Pulse 123; Resp 32; Temp 98(O); Pulse Ox 94% on R/A; Pain 0/10; ch 13:52 BP 157 / 96; Pulse 115; Resp 22; Pulse Ox 96% on R/A; Pain 0/10; ch 15:10 BP 156 / 93; Pulse 108; Resp 20; Pulse Ox 99% on Nebulizer Mask; Pain 0/10; ch 15:56 BP 136 / 67; Pulse 144; Resp 21; Temp 98.3; Pulse Ox 94% on R/A; ch 15:58 BP 145 / 84; Pulse 148; Resp 18 S; Pulse Ox 94% ; ch 16:19 Weight 63.5 kg; Height 4 ft. 11 in. (149.86 cm); ch 16:20 BP 125 / 67; Pulse 98; Resp 30; Pulse Ox 97% on R/A; ch 17:20 BP 123 / 60; Pulse 89; Resp 24; Temp 98.; Pulse Ox 97% on R/A; Pain 0/10; ch 16:19 Body Mass Index 28.28 (63.50 kg, 149.86 cm) ch 16:20 erp notified of pt change in vitals. second round of lopressor held due to pt status ch ED Course: 13:28 Patient arrived in ED. ch 13:30 Triage completed. ch 13:30 Initial lab(s) drawn, by mn, sent to lab. First set of blood cultures drawn by me. jb1 13:31 Fransico Rodriguez MD is Attending Physician. prabhakar 13:32 Arm band placed on left wrist. Patient placed in an exam room, on a stretcher, on electronic device monitor, on pulse oximetry. 13:36 EKG done, by ED staff. jp3 13:40 Colleen Cid, LUIS is Primary Nurse. ch 13:45 Second set of blood cultures drawn by me. jb1 13:52 EKG completed in triage. Results shown to MD. ch 13:52 Inserted saline lock: 20 gauge in right antecubital area, using aseptic technique. jb1 Blood collected. 14:17 X-ray completed. Portable x-ray completed in exam room. Patient tolerated procedure la2 well. 14:19 XRAY Chest (1 view) In Process Unspecified. EDMS 15:10 No apparent distress. Resting quietly. ch 15:10 Patient has correct armband on for positive identification. Placed in gown. Bed in low ch position. Call light in reach. Side rails up X2. Adult w/ patient. shelter monitor on. Pulse ox on. NIBP on. Warm blanket given. 15:10 No provider procedures requiring assistance completed. ch 16:07 Tapan Coats MD is Hospitalizing Provider. prabhakar 16:09 EKG done, by ED staff, reviewed by Fransico Rodriguez MD. jp3 16:57 CT completed. Patient tolerated procedure well. Patient moved back from CT. bq 18:20 Patient admitted, IV remains in place. ch Administered Medications: 14:07 Drug: SOLU-Medrol 125 mg Route: IVP; Site: right antecubital; ch 15:13 Follow up: Response: No adverse reaction; Marked relief of symptoms ch 14:07 Drug: Albuterol - atroVENT (3:1) (2.5 mg - 0.5 mg) 3 ml Route: Nebulizer; ch 15:13 Follow up: Response: No adverse reaction; Marked relief of symptoms ch 14:07 Drug: Rocephin - (cefTRIAXone) 1 grams Route: IVPB; Infused Over: 30 mins; Site: right ch antecubital; 15:13 Follow up: IV Status: Completed infusion; IV Intake: 10ml ch 14:07 Drug: Pepcid 20 mg Route: IVP; Site: right antecubital; ch 15:13 Follow up: Response: No adverse reaction; Marked relief of symptoms ch 14:07 Drug: NS 0.9% 500 ml Route: IV; Rate: bolus; Site: right antecubital; ch 15:12 Follow up: IV Status: Completed infusion; IV Intake: 500ml ch 14:08 Drug: NS 0.9% 1000 ml Route: IV; Rate: 75 ml/hr; Site: right antecubital; ch 18:18 Follow up: IV Status: Infusion continued upon admission; IV Intake: 300ml ch 16:09 Drug: Potassium Chloride 20 mEq Route: PO; ch 16:26 Follow up: Response: No adverse reaction; Marked relief of symptoms ch 16:09 Drug: Lopressor 25 mg Route: PO; ch 16:25 Follow up: Response: No adverse reaction; Marked relief of symptoms ch 16:09 Drug: Lopressor 2.5 mg Route: IVP; Site: right antecubital; ch 16:25 Follow up: Response: No adverse reaction; Marked relief of symptoms ch 16:25 Drug: Lovenox 60 mg Route: Sub-Q; Site: abdomen; ch 18:06 Follow up: Response: No adverse reaction; Marked relief of symptoms ch 17:00 Drug: Zithromax 500 mg Route: IVPB; Infused Over: 1 hrs; Site: right antecubital; ch 18:07 Follow up: IV Status: Completed infusion; IV Intake: 250ml ch 18:18 Not Given (pt vitals signs improved, rythym changed. ): Lopressor 2.5 mg IVP once; Hold ch for SBP <100 or HR <60. Intake: 15:12 IV: 500ml; Total: 500ml. ch 15:13 IV: 10ml; Total: 510ml. ch 18:07 IV: 250ml; Total: 760ml. ch 18:18 IV: 300ml; Total: 1060ml. ch Outcome: 16:08 Decision to Hospitalize by Provider. prabhakar 17:52 Condition: stable ch 18:17 Patient left the ED. ch 18:19 Admitted to Med/surg accompanied by tech, via stretcher, room 428, with chart. ch 18:19 Instructed on the need for admit. Signatures: Dispatcher [employer] EDMilton Jackson1 Colleen Cid, RN RN Fransico Garner MD MD cha Quilty, Betty bq Ardoin, Leslie la2 Georges Melo jp3 Corrections: (The following items were deleted from the chart) 15:58 15:56 BP 106 / 67; Pulse 144bpm; Resp 21bpm; Pulse Ox 94% RA; Temp 98.3F; [facility]
--- NOTE | 2017-08-18 16:09 | EDPHYS ---
Physician Documentation [facility] Name: Grisel Ray Age: 87 yrs Sex: Female : 1930 Arrival Date: 08/18/2017 Time: 13:28 Bed 8 Private MD: ED Physician Fransico Rodriguez HPI: 08/18 13:47 This 87 yrs old Female presents to ER via EMS with complaints of General prabhakar Weakness. 13:47 The patient has shortness of breath at rest, with light activity. Onset: The prabhakar symptoms/episode began/occurred 3 day(s) ago. Duration: The symptoms are continuous, and are steadily getting worse. The patient's shortness of breath has no apparent modifying factors. The patient or guardian reports cough, described as mild, difficulty breathing, hoarse voice. Modifying factors: The symptoms are alleviated by nothing. the symptoms are aggravated by nothing. Associated signs and symptoms: Pertinent positives: non-productive cough, nausea. Severity of symptoms: At their worst the symptoms were moderate in the emergency department the symptoms are unchanged. The patient or guardian reports flu symptoms, arthralgias, myalgias. Historical: - Allergies: 13:32 No Known Drug Allergies; ch - Home Meds: 13:43 triamterene-hydrochlorothiazid 37.5-25 mg Oral tab 1 tab once daily [Active]; ch pantoprazole 40 mg oral TbEC 1 tab once daily [Active]; levothyroxine 100 mcg tab 1 tab once daily [Active]; 13:45 amlodipine 5 mg oral tab 1 tab once daily [Active]; metoprolol tartrate 50 mg Oral tab ch 1 tab 2 times per day [Active]; hydralazine 10 mg Oral tab 1 tab 2 times per day [Active]; - PMHx: 13:32 Hypertension; Hypothyroidism; ch 13:43 GERD; Hyperlipidemia; osteoarthritis; ch - PSHx: 13:32 Cholecystectomy; ch - Immunization history:: Adult Immunizations up to date. - Social history:: Smoking status: Patient/guardian denies using tobacco. - Ebola Screening: : Patient negative for fever greater than or equal to 101.5 degrees Fahrenheit, and additional compatible Ebola Virus Disease symptoms Patient denies exposure to infectious person Patient denies travel to an Ebola-affected area in the 21 days before illness onset No symptoms or risks identified at this time. ROS: 13:51 Constitutional: Negative for fever, chills, and weight loss, Eyes: Negative for injury, prabhakar pain, redness, and discharge, ENT: Negative for injury, pain, and discharge, Neck: Negative for injury, pain, and swelling, Cardiovascular: Negative for chest pain, palpitations, and edema, Abdomen/GI: Negative for abdominal pain, nausea, vomiting, diarrhea, and constipation, Back: Negative for injury and pain, : Negative for injury, bleeding, discharge, and swelling, MS/Extremity: Negative for injury and deformity, Skin: Negative for injury, rash, and discoloration, Neuro: Negative for headache, weakness, numbness, tingling, and seizure, Psych: Negative for depression, anxiety, suicide ideation, homicidal ideation, and hallucinations, Allergy/Immunology: Negative for hives, rash, and allergies, Endocrine: Negative for neck swelling, polydipsia, polyuria, polyphagia, and marked weight changes. 13:51 Respiratory: Positive for cough, shortness of breath, at rest. wheezing, inspiratory, expiratory. Exam: 13:51 Constitutional: This is a well developed, well nourished patient who is awake, alert, prabhakar and in no acute distress. Head/Face: Normocephalic, atraumatic. Eyes: Pupils equal round and reactive to light, extra-ocular motions intact. Lids and lashes normal. Conjunctiva and sclera are non-icteric and not injected. Cornea within normal limits. Periorbital areas with no swelling, redness, or edema. ENT: Nares patent. No nasal discharge, no septal abnormalities noted. Tympanic membranes are normal and external auditory canals are clear. Oropharynx with no redness, swelling, or masses, exudates, or evidence of obstruction, uvula midline. Mucous membranes moist. Neck: Trachea midline, no thyromegaly or masses palpated, and no cervical lymphadenopathy. Supple, full range of motion without nuchal rigidity, or vertebral point tenderness. No Meningismus. Chest/axilla: Normal chest wall appearance and motion. Nontender with no deformity. No lesions are appreciated. Cardiovascular: Regular rate and rhythm with a normal S1 and S2. No gallops, murmurs, or rubs. Normal PMI, no JVD. No pulse deficits. Abdomen/GI: Soft, non-tender, with normal bowel sounds. No distension or tympany. No guarding or rebound. No evidence of tenderness throughout. Back: No spinal tenderness. No costovertebral tenderness. Full range of motion. Female : Normal external genitalia. Skin: Warm, dry with normal turgor. Normal color with no rashes, no lesions, and no evidence of cellulitis. MS/ Extremity: Pulses equal, no cyanosis. Neurovascular intact. Full, normal range of motion. Neuro: Awake and alert, GCS 15, oriented to person, place, time, and situation. Cranial nerves II-XII grossly intact. Motor strength 5/5 in all extremities. Sensory grossly intact. Cerebellar exam normal. Normal gait. Psych: Awake, alert, with orientation to person, place and time. Behavior, mood, and affect are within normal limits. 13:51 Respiratory: mild respiratory distress is noted, Respirations: labored breathing, that is mild, Breath sounds: bronchial sounds, that are mild, decreased breath sounds, that are mild, rhonchi, that are mild, wheezing: that is mild. Vital Signs: 13:32 BP 165 / 114; Pulse 123; Resp 32; Temp 98(O); Pulse Ox 94% on R/A; Pain 0/10; ch 13:52 BP 157 / 96; Pulse 115; Resp 22; Pulse Ox 96% on R/A; Pain 0/10; ch 15:10 BP 156 / 93; Pulse 108; Resp 20; Pulse Ox 99% on Nebulizer Mask; Pain 0/10; ch 15:56 BP 136 / 67; Pulse 144; Resp 21; Temp 98.3; Pulse Ox 94% on R/A; ch 15:58 BP 145 / 84; Pulse 148; Resp 18 S; Pulse Ox 94% ; ch 16:19 Weight 63.5 kg; Height 4 ft. 11 in. (149.86 cm); ch 16:20 BP 125 / 67; Pulse 98; Resp 30; Pulse Ox 97% on R/A; ch 17:20 BP 123 / 60; Pulse 89; Resp 24; Temp 98.; Pulse Ox 97% on R/A; Pain 0/10; ch 16:19 Body Mass Index 28.28 (63.50 kg, 149.86 cm) ch 16:20 erp notified of pt change in vitals. second round of lopressor held due to pt status MDM: 13:31 Patient medically screened. [facility] 13:53 Data reviewed: vital signs, nurses notes, lab test result(s), EKG, radiologic studies, prabhakar plain films. 08/18 13:41 Order name: Basic Metabolic Panel; Complete Time: 15:41 [facility] 08/18 13:41 Order name: BNP; Complete Time: 15:41 [facility] 08/18 13:41 Order name: CBC with Diff; Complete Time: 15:41 [facility] 08/18 13:41 Order name: Ckmb; Complete Time: 15:41 [facility] 08/18 13:41 Order name: CPK; Complete Time: 15:41 [facility] 08/18 13:41 Order name: LFT's; Complete Time: 15:41 [facility] 08/18 13:41 Order name: Magnesium; Complete Time: 15:41 [facility] 08/18 13:41 Order name: PT-INR; Complete Time: 15:41 [facility] 08/18 13:41 Order name: Ptt, Activated; Complete Time: 15:41 [facility] 08/18 13:41 Order name: Troponin (emerg Dept Use Only); Complete Time: 15:41 [facility] 08/18 13:41 Order name: Lipase; Complete Time: 15:41 [facility] 08/18 13:41 Order name: Blood Culture Adult (2) [facility] 08/18 13:41 Order name: Procalcitonin; Complete Time: 15:41 [facility] 08/18 13:41 Order name: TSH; Complete Time: 15:41 [facility] 08/18 13:41 Order name: XRAY Chest (1 view); Complete Time: 15:41 [facility] 08/18 13:51 Order name: Flu; Complete Time: 15:41 [facility] 08/18 15:10 Order name: Urine Dipstick--Ancillary (enter results) bd 08/18 16:22 Order name: Echo with Doppler EDMS 08/18 16:22 Order name: Basic Metabolic Panel EDMS 08/18 16:22 Order name: Basic Metabolic Panel EDMS 08/18 16:22 Order name: CBC with Automated Diff EDMS 08/18 16:22 Order name: CBC with Automated Diff EDMS 08/18 16:22 Order name: Troponin I EDMS 08/18 16:22 Order name: Troponin I EDMS 08/18 16:22 Order name: Troponin I EDMS 08/18 16:23 Order name: Chest Single View EDMS 08/18 16:23 Order name: Chest Single View [facility] 08/18 16:24 Order name: CT Chest Wo Con [facility] 08/18 17:11 Order name: CT; Complete Time: 17:16 [facility] 08/18 13:41 Order name: EKG; Complete Time: 13:42 [facility] 08/18 13:41 Order name: Cardiac monitoring; Complete Time: 13:53 [facility] 08/18 13:41 Order name: EKG - Nurse/Tech; Complete Time: 13:45 [facility] 08/18 13:41 Order name: IV Saline Lock; Complete Time: 13:53 [facility] 08/18 13:41 Order name: Labs collected and sent; Complete Time: 13:53 [facility] 08/18 13:41 Order name: O2 Per Protocol; Complete Time: 13:53 [facility] 08/18 13:41 Order name: O2 Sat Monitoring; Complete Time: 13:53 [facility] 08/18 13:41 Order name: Urine Dipstick-Ancillary (obtain specimen); Complete Time: 15:14 [facility] 08/18 15:55 Order name: EKG; Complete Time: 15:55 [facility] 08/18 15:55 Order name: EKG - Nurse/Tech; Complete Time: 16:09 [facility] 08/18 16:22 Order name: CONS Physician Consult [facility] 08/18 16:22 Order name: Regular [facility] 08/18 16:22 Order name: EKG Electrocardiogram [facility] 08/18 16:22 Order name: EKG Electrocardiogram [facility] 08/18 16:22 Order name: EKG Electrocardiogram [facility] 08/18 16:22 Order name: EKG Electrocardiogram [facility] Administered Medications: 14:07 Drug: SOLU-Medrol 125 mg Route: IVP; Site: right antecubital; 15:13 Follow up: Response: No adverse reaction; Marked relief of symptoms ch 14:07 Drug: Albuterol - atroVENT (3:1) (2.5 mg - 0.5 mg) 3 ml Route: Nebulizer; ch 15:13 Follow up: Response: No adverse reaction; Marked relief of symptoms ch 14:07 Drug: Rocephin - (cefTRIAXone) 1 grams Route: IVPB; Infused Over: 30 mins; Site: right ch antecubital; 15:13 Follow up: IV Status: Completed infusion; IV Intake: 10ml ch 14:07 Drug: Pepcid 20 mg Route: IVP; Site: right antecubital; ch 15:13 Follow up: Response: No adverse reaction; Marked relief of symptoms ch 14:07 Drug: NS 0.9% 500 ml Route: IV; Rate: bolus; Site: right antecubital; ch 15:12 Follow up: IV Status: Completed infusion; IV Intake: 500ml ch 14:08 Drug: NS 0.9% 1000 ml Route: IV; Rate: 75 ml/hr; Site: right antecubital; ch 18:18 Follow up: IV Status: Infusion continued upon admission; IV Intake: 300ml ch 16:09 Drug: Potassium Chloride 20 mEq Route: PO; ch 16:26 Follow up: Response: No adverse reaction; Marked relief of symptoms ch 16:09 Drug: Lopressor 25 mg Route: PO; ch 16:25 Follow up: Response: No adverse reaction; Marked relief of symptoms ch 16:09 Drug: Lopressor 2.5 mg Route: IVP; Site: right antecubital; ch 16:25 Follow up: Response: No adverse reaction; Marked relief of symptoms ch 16:25 Drug: Lovenox 60 mg Route: Sub-Q; Site: abdomen; ch 18:06 Follow up: Response: No adverse reaction; Marked relief of symptoms ch 17:00 Drug: Zithromax 500 mg Route: IVPB; Infused Over: 1 hrs; Site: right antecubital; ch 18:07 Follow up: IV Status: Completed infusion; IV Intake: 250ml ch 18:18 Not Given (pt vitals signs improved, rythym changed. ): Lopressor 2.5 mg IVP once; Hold ch for SBP <100 or HR <60. Disposition: 08/18/17 16:08 Hospitalization ordered by Tapan Coats for Inpatient Admission. Preliminary diagnosis are Acute upper respiratory infection, unspecified, Dyspnea, Atrial fibrillation and flutter, Unspecified kidney failure, Hypokalemia, Hypoxemia, Acute laryngitis, Pneumonia due to other specified bacteria - rioght lower lob. - Bed requested for Telemetry/MedSurg (Inpatient). - Status is Inpatient Admission. ch - Condition is Fair. - Problem is new. - Symptoms have improved. UTI on Admission? No Signatures: Dispatcher [employer] EDColleen Landry RN RN ch Woody, Diana, RN RN dw Anderson, Corey, MD MD cha Corrections: (The following items were deleted from the chart) 16:25 16:08 Hospitalization Ordered by Tapan Coats MD for Inpatient Admission. Preliminary [facility] diagnosis is Acute upper respiratory infection, unspecified; Dyspnea; Atrial fibrillation and flutter; Unspecified kidney failure; Hypokalemia. Bed requested for Telemetry/MedSurg (Inpatient). Status is Inpatient Admission. Condition is Fair. Problem is new. Symptoms have improved. UTI on Admission? No. prabhakar 16:55 16:25 08/18/2017 16:08 Hospitalization Ordered by Tapan Coats MD for Inpatient dw Admission. Preliminary diagnosis is Acute upper respiratory infection, unspecified; Dyspnea; Atrial fibrillation and flutter; Unspecified kidney failure; Hypokalemia; Hypoxemia; Acute laryngitis. Bed requested for Telemetry/MedSurg (Inpatient). Status is Inpatient Admission. Condition is Fair. Problem is new. Symptoms have improved. UTI on Admission? No. prabhakar 17:18 16:55 08/18/2017 16:08 Hospitalization Ordered by Tapan Coats MD for Inpatient prabhakar Admission. Preliminary diagnosis is Acute upper respiratory infection, unspecified; Dyspnea; Atrial fibrillation and flutter; Unspecified kidney failure; Hypokalemia; Hypoxemia; Acute laryngitis. Bed requested for Telemetry/MedSurg (Inpatient). Status is Inpatient Admission. Condition is Fair. Problem is new. Symptoms have improved. UTI on Admission? No. dw 18:17 17:18 08/18/2017 16:08 Hospitalization Ordered by Tapan Coats MD for Inpatient ch Admission. Preliminary diagnosis is Acute upper respiratory infection, unspecified; Dyspnea; Atrial fibrillation and flutter; Unspecified kidney failure; Hypokalemia; Hypoxemia; Acute laryngitis; Pneumonia due to other specified bacteria - rioght lower lob. Bed requested for Telemetry/MedSurg (Inpatient). Status is Inpatient Admission. Condition is Fair. Problem is new. Symptoms have improved. UTI on Admission? No. prabhakar
[2017-08-18] MEDS ORDERED: MORPHINE 4 MG/ML SYR IV PRN (16:12)
[2017-08-18] MEDS ORDERED: ONDANSETRON 4 MG/2 ML VIAL IV PRN (16:12)
--- NOTE | 2017-08-18 17:11 | RAD REPORT ---
EXAM DESCRIPTION: CT - Thorax Wo Con - 08/18/2017 4:57 pm CLINICAL HISTORY: cough COMPARISON: September 2016 cat scan. August 18, 2017 chest x-ray TECHNIQUE: Computed axial tomography of the chest was obtained. Contrast was not requested. All CT scans are performed using dose optimization technique as appropriate and may include automated exposure control or mA/KV adjustment according to patient size. FINDINGS: The evaluation of mediastinum, neel and vessels is limited secondary to lack of IV contras t administration. A right posterior diaphragmatic hernia contains fat. This accounts for the abnormality seen on the est x-ray. Mild left lower lobe bronchiectasis is present. Mild opacity is present within the medial right lower lobe. Mild chronic appearing opacities are present within the left lower No mediastinal or hilar lymphadenopathy is seen. A small to moderate hiatal hernia is present A pleural effusion is not present. A a small pericardial effusion is seen IMPRESSION: Mild right lower lobe opacity may represent pneumonia
[2017-08-18 17:17] LABS: Urine Blood TRACE (NEG); Urine Glucose NEGATIVE (NEG); Urine Protein 1+ (NEG); Urine pH 5.5 (5.0-7.0)
[2017-08-18] MEDS ORDERED: ENOXAPARIN 60 MG/0.6 ML SQ ONE (17:58)
[2017-08-18] MEDS: IPRATROPIUM BROM 0.5MG/2.5ML NEB SCH (19:40)
[2017-08-18] MEDS: ALBUTEROL 2.5 MG/3 ML NEB SOL NEB SCH (19:40)
[2017-08-18] MEDS: METHYLPREDNISOLONE 40 MG INJ IV SCH ×2 (19:57→23:32)
[2017-08-18] MEDS: NA CHLORIDE 0.9% 1,000 ML IV SCH (19:58)
[2017-08-18] MEDS: METOPROLOL TAR 50 MG TAB PO SCH (19:59)
[2017-08-18] MEDS: HYDRALAZINE HCL 10 MG TABLET PO SCH (19:59)
[2017-08-18 20:25] VITALS: BMI 24.3
[2017-08-18] MEDS: FAMOTIDINE 20 MG/2 ML VIAL IV SCH (21:09)
[2017-08-18] MEDS: ACETAMINOPHEN 500 MG TAB PO PRN (23:32)
[2017-08-19] MEDS: IPRATROPIUM BROM 0.5MG/2.5ML NEB SCH ×4 (01:19→19:22)
[2017-08-19] MEDS: ALBUTEROL 2.5 MG/3 ML NEB SOL NEB SCH ×4 (01:20→20:00)
[2017-08-19] MEDS: ENOXAPARIN 60 MG/0.6 ML SQ SCH ×2 (05:27→17:53)
[2017-08-19] MEDS: METHYLPREDNISOLONE 40 MG INJ IV SCH (05:28)
[2017-08-19] MEDS: NA CHLORIDE 0.9% 1,000 ML IV SCH ×2 (05:34→21:01)
[2017-08-19 06:21] LABS: Absolute Lymphocytes (CBC) 0.7 K/uL (0.7-4.9); Absolute Monocytes 0.4 K/uL (0.1-1.3); Absolute Neutrophil 12.8 K/uL (1.8-8.0); Basophils % 0.2 % (0-1.3); Lymphocytes % 5.2 % (15.3-44.8); MCH 30.6 pg (27.0-35.0); MCV 93.5 fL (80-100); MPV 10.8 fL (7.6-11.3); Monocytes % 2.7 % (3.3-12.3); RBC Red Blood Cell Count 3.85 M/uL (3.86-4.86)
--- NOTE | 2017-08-19 06:30 | EKG ---
Test Date: 2017-08-18 Test Time: 16:01:42 Software Performance Engineer: SANDEEP MEASUREMENT RESULTS: Intervals: Rate: 134 [place]: QRSD: 92 QT: 276 QTc: 412 [place]: P: [place]: QRS: 25 T: 269 INTERPRETIVE STATEMENTS: Atrial fibrillation with rapid ventricular response with premature ventricular or aberrantly conducted complexes ST & T wave abnormality, consider inferolateral ischemia Abnormal ECG Compared to ECG 07/22/2017 13:16:00 ST (T wave) deviation now present Possible ischemia now present Sinus rhythm no longer present Electronically Signed On 08-19-17 06:29:05 CDT by Lars Correia
[2017-08-19 06:34] LABS: Potassium 4.1 mEq/L (3.6-5.0)
--- NOTE | 2017-08-19 07:34 | EKG ---
Test Date: 2017-08-18 Test Time: 13:36:01 Apartment Locator: SANDEEP MEASUREMENT RESULTS: Intervals: Rate: 122 MN: 148 QRSD: 88 QT: 318 QTc: 453 [place]: P: 42 MN: 148 QRS: 10 T: -80 INTERPRETIVE STATEMENTS: Sinus tachycardia with premature atrial complexes ST & T wave abnormality, consider inferior ischemia ST & T wave abnormality, consider anterior ischemia Abnormal ECG Compared to ECG 07/22/2017 13:16:00 no significant change from previous ECG Electronically Signed On 08-19-17 07:34:05 CDT by Lars Correia
--- NOTE | 2017-08-19 07:35 | EKG ---
Test Date: 2017-08-18 Test Time: 13:34:51 District Wire Chief: SANDEEP MEASUREMENT RESULTS: Intervals: Rate: 118 NM: 154 QRSD: 86 QT: 312 QTc: 437 [place]: P: 61 NM: 154 QRS: 11 T: -58 INTERPRETIVE STATEMENTS: Sinus tachycardia with frequent premature atrial complexes ST & T wave abnormality, consider inferior ischemia ST & T wave abnormality, consider anterior ischemia Abnormal ECG Compared to ECG 07/22/2017 13:16:00 ST (T wave) deviation now present Possible ischemia now present Sinus rhythm no longer present Electronically Signed On 08-19-17 07:34:30 CDT by Lars Correia
[2017-08-19 07:37] LABS: Blood Morphology Comment NOT SEEN (NOT SEEN); Platelet Estimate ADEQ; Urine White Blood Cell Casts OK
--- NOTE | 2017-08-19 08:53 | RAD REPORT ---
EXAM DESCRIPTION: Luisa Single View08/19/2017 6:37 am CLINICAL HISTORY: Chest pain COMPARISON: August 18, 2017 FINDINGS: The medial right lower lobe opacity is not well visualized on the chest x-ray as it is obs cured by the heart. No obvious change is seen. The known right diaphragmatic hernia is not well visualized secondary to differences in inspiration. The left lung appears clear. The heart is mildly enlarged
[2017-08-19] MEDS ORDERED: CEFTRIAXONE 1 GM/NS 50 ML 1 GM/50 ML BAG IV SCH (09:00)
[2017-08-19] MEDS ORDERED: AZITHROMYCIN IV 250 MG in NA CHLORIDE 0.9% 250 ML IVPB SCH (09:00)
--- NOTE | 2017-08-19 09:29 | EKG ---
Test Date: 2017-08-19 Test Time: 08:18:20 Bowstring Maker: KANE MEASUREMENT RESULTS: Intervals: Rate: 64 FL: 156 QRSD: 92 QT: 456 QTc: 470 [place]: P: 52 FL: 156 QRS: 13 T: -10 INTERPRETIVE STATEMENTS: Sinus rhythm with premature atrial complexes Nonspecific ST and T wave abnormality Prolonged QT Abnormal ECG Compared to ECG 08/18/2017 16:01:42 Atrial premature complex(es) now present Prolonged QT interval now present Atrial fibrillation no longer present Ventricular premature complex(es) no longer present Electronically Signed On 08-19-17 09:29:09 CDT by Lars Correia
[2017-08-19] MEDS: POTASSIUM 25 MEQ EFFERV TAB PO SCH (09:31)
[2017-08-19] MEDS: METOPROLOL TAR 50 MG TAB PO SCH (09:32)
[2017-08-19] MEDS: HYDRALAZINE HCL 10 MG TABLET PO SCH ×2 (09:32→21:00)
[2017-08-19] MEDS: ASPIRIN EC 81 MG TAB PO SCH (09:32)
[2017-08-19] MEDS: FAMOTIDINE 20 MG/2 ML VIAL IV SCH (09:33)
[2017-08-19] MEDS: CEFTRIAXONE/SWI 1gm 1 GM/10 ML SYR IV SCH (09:33)
[2017-08-19] MEDS ORDERED: SOTALOL HCL 80 MG TAB PO ONE (09:52)
--- NOTE | 2017-08-19 11:08 | ECHO ---
HEIGHT: 5 ft 5 in WEIGHT: 146 lb 0 oz DATE OF STUDY: 08/19/[address]: Fransico Rodriguez MD 2-DIMENSIONAL: YES M.MODE: YES DOPPLER: YES COLOR FLOW: YES TDS: NO PORTABLE: NO DEFINITY: NO BUBBLE STUDY: NO DIAGNOSIS: ATRIAL FIBRILLATION WITH RAPID VENTRICULAR RESPONSE CARDIAC HISTORY: CATHERIZATION: NO SURGERY: NO PROSTHETIC VALVE: NO PACEMAKER: NO MEASUREMENTS (cm) DIASTOLIC (NORMALS) SYSTOLIC (NORMALS) IVSd 1.2 (0.6-1.2) LA Diam 4.1 (1.9-4.0) LVEF 60-69% LVIDd 4.5 (3.5-5.7) LVIDs 3.5 (2.0-3.5) %FS 23% LVPWd 1.2 (0.6-1.2) Ao Diam 3.0 (2.0-3.7) 2 DIMENSIONAL ASSESSMENT: RIGHT ATRIUM: NORMAL LEFT ATRIUM: DILATED RIGHT VENTRICLE: NORMAL LEFT VENTRICLE: LEFT VENTRICULAR HYPERTROPHY TRICUSPID VALVE: NORMAL MITRAL VALVE: NORMAL PULMONIC VALVE: NORMAL AORTIC VALVE: NORMAL PERICARDIAL EFFUSION: NONE AORTIC ROOT: NORMAL LEFT VENTRICULAR WALL MOTION: NORMAL. DOPPLER/COLOR FLOW: MILD TRICUSPID REGURGITATION. MILD MITRAL REGURGITATION. MILD PULMONARY HYPERTENSION, ESTIMATED RIGHT VENTRICULAR SYSTOLIC PRESSURE 42mmHg. ESTIMATED RIGHT ATRIAL PRESSURE 15mmHg. IMPAIRED LEFT VENTRICULAR RELAXATION. COMMENTS: NORMAL LEFT VENTRICULAR EJECITON FRACTION. LEFT VENTRICULAR HYPERTROPHY. DILATED LEFT ATRIUM. MILD MITRAL AND TRICUSPID REGURGITATION. MILD PULMONARY HYPERTENSION. ELEVATED RIGHT ATRIAL PRESSURE. IMPAIRED LEFT VENTRICULAR RELAXATION. NORMAL SINUS RHYTHM. TECHNOLOGIST: YAHAIRA MCGEE
[2017-08-19] MEDS: SOTALOL HCL 80 MG TAB PO SCH (17:53)
[2017-08-19] MEDS: FAMOTIDINE 20 MG TAB PO SCH (21:05)
[2017-08-20] MEDS: IPRATROPIUM BROM 0.5MG/2.5ML NEB SCH ×4 (01:29→20:16)
[2017-08-20] MEDS: ALBUTEROL 2.5 MG/3 ML NEB SOL NEB SCH ×4 (02:00→20:16)
[2017-08-20] MEDS: ACETAMINOPHEN 500 MG TAB PO PRN (02:31)
[2017-08-20] MEDS: SOTALOL HCL 80 MG TAB PO SCH ×2 (05:17→17:50)
[2017-08-20] MEDS: ENOXAPARIN 60 MG/0.6 ML SQ SCH ×2 (05:17→17:50)
[2017-08-20] MEDS: NA CHLORIDE 0.9% 1,000 ML IV SCH (05:18)
[2017-08-20] MEDS: FAMOTIDINE 20 MG TAB PO SCH ×2 (08:58→21:24)
[2017-08-20] MEDS: POTASSIUM 25 MEQ EFFERV TAB PO SCH (08:58)
[2017-08-20] MEDS: HYDRALAZINE HCL 10 MG TABLET PO SCH ×2 (08:59→21:24)
[2017-08-20] MEDS: ASPIRIN EC 81 MG TAB PO SCH (08:59)
[2017-08-20] MEDS: CEFTRIAXONE/SWI 1gm 1 GM/10 ML SYR IV SCH (09:00)
--- NOTE | 2017-08-20 09:57 | HP ---
Date of Admission: 08/19/2017 Chief Complaint: Shortness of breath. History Of Present Illness: This 87-year-old female patient, came into emergency room yesterday with complaints of shortness of breath. Please see dictated H and P for more information. After the patient was evaluated in the ER, she was diagnosed as having pneumonia and atrial fibrillation and she was admitted to the hospital. When I saw her this morning, her was present with her at bedside. She denies any expectoration, has some cough. No vomiting. No diarrhea. Medications: List reviewed. Allergies: NO KNOWN ALLERGIES. Review of Systems: Respiratory: As mentioned above. Cardiovascular: As mentioned above. All other systems reviewed and negative. Past Medical History: Significant for osteoarthritis, hypertension, hypothyroidism, and hyperlipidemia. Past Surgical History: Cholecystectomy, removal of ovarian cyst, and knee replacement. Family History: Significant for diabetes, liver cancer, and kidney cancer. Social History: Prior history of smoking, not at present time. Use of alcohol negative except occasional drink. Physical Examination: Vital Signs: Height 5 feet 5 inches, weight 146 pounds, temperature 97, pulse 71, respiratory rate 18, blood pressure 142/68, oxygen saturation 97%. General: Awake, alert, oriented, not in distress. HEENT: Head atraumatic, normocephalic. Conjunctivae nonerythematous. Sclerae white. Mouth, no thrush or edema noted. Ears/Nose, no mass, lesion, discharge noted. Neck: Supple. No JVD, lymph nodes, bruit, thyromegaly noted. Lungs: Presence of some rales in the right mid lung field. No wheezing. Not in any respiratory distress. Heart: Normal heart sounds, no murmur or gallop. Abdomen: Soft, bowel sounds normal. No guarding, rigidity, tenderness, mass, hepatosplenomegaly, distention, or bruit noted. Extremities: No leg edema. No calf tenderness. Skin: No rash, ulcer, cellulitis. Lymphatics: No lymph node enlargement in neck, supraclavicular, infraclavicular region. Neuro: No focal neurological deficit. Chest: Unremarkable. External Genitalia: Deferred. Rectal: Deferred. Laboratory Data: Yesterday, white count 14.4, hemoglobin 12.9, platelets 210. This morning white count 14, hemoglobin 11.8, platelets 187. Yesterday sodium 135, potassium 3.3, chloride 101, bicarb 23, BUN 23, creatinine 1.08, glucose 123. Liver function tests unremarkable. Troponin less than 0.03. BNP 92. Procalcitonin 0.23. This morning, sodium 142, potassium 4.1, chloride 109, bicarb 24, BUN 22, creatinine 0.92, glucose 149. Troponin less than 0.03. Diagnostic Data: CAT scan of the chest shows mild right lower lobe opacity. Chest x-ray, no acute changes. EKG; atrial fibrillation with rapid ventricular rate. Echocardiogram from 07/22/2017 shows normal ejection fraction of 59%. Stress test from 07/22/2017, no wall reversible perfusion defect. Impression: 1. Pneumonia. 2. Atrial fibrillation. 3. Hypertension. 4. Hyperlipidemia. 5. Hypothyroidism. 6. Osteoarthritis, multiple sites. Plan: Admit the patient to hospital for further evaluation and management of this problem. The patient is appropriate for inpatient and is expected to spend 2 midnights in the hospital. We will consult Cardiology. Continue Lovenox per order. Continue antibiotics per order. Home medications will be continued per order. Ambulation was encouraged. I will see her tomorrow for followup. The patient was started on sotalol, per metal bonding crib attendant. We will discontinue azithromycin to avoid any interaction with sotalol and continue ceftriaxone. [place]/[facility] Voice ID: [id number] NATHALIE
--- NOTE | 2017-08-20 11:09 | CON ---
Date of Consultation: 08/20/[address] Coast's service on 08/19/2017. I saw the patient on 08/20/2017. Reason For Consultation: Atrial fibrillation. History Of Present Illness: Ms. Ray is an 87-year-old woman with history of hyp ertension, dyslipidemia, gastroesophageal reflux disease, and hypothyroidism, who was admitted with w eakness and shortness of breath, found to have rapid atrial fibrillation. Denied chest pain, nausea, vomiting, diaphoresis, PND, orthopnea, pedal edema, or syncope. Denied fever or chills. By the jairo e I saw her, she has already been placed on sotalol and converted to sinus rhythm. Allergies: NONE. Review of Systems: Negative. Social History: Negative. Family History: Noncontributory. Medications: At home include triamterene with hydrochlorothiazide, Norvasc, metoprolol, hydralazine, Protonix, and Synthroid. Physical Examination: General: She was asymptomatic in sinus rhythm. No acute distress. Vital Signs: Stable. HEENT: Negative. Neck: Supple with no bruit. Chest: Clear. Cardiac: Revealed regular rhythm and rate with an S4 gallop. Abdomen: Benign. Extremities: Revealed no clubbing, cyanosis, or edema. Laboratory Data: Chest x-ray showed hiatal hernia. EKG today is done normal sinus rhythm and nonspe cific changes. Echocardiogram in July 2017 showed mild pulmonary hypertension, decreased left ventric ular compliance, and normal ejection fraction. Lexiscan was normal in July 2017. [place] [address]. Potassium was 3.3. Impression And Plan: 1.Paroxysmal atrial fibrillation, resolved on sotalol. Ms. Ray is an 87-year-old. I would fe el more comfortable with her taking aspirin rather than any of the anticoagulants. I will discuss case with Dr. Coats. We would definitely keep her on sotalol in addition to other medications inclu ding Norvasc, hydralazine, triamterene with hydrochlorothiazide. I will stop the metoprolol and keep her on sotalol. 2.Hypertension, well controlled. 3.Hypothyroidism, on Synthroid. 4.Gastroesophageal reflux, on Protonix. 5.Dyslipidemia. 6.Hypokalemia. 7.Elevated white count. 8.Mild pulmonary hypertension with chronic diastolic congestive heart failure that is stable. Ms. Dede drew can go home whenever it is okay with Dr. Coats. We will see her as an outpatient. PAWAN/SARAH Voice ID: [id number] Report ID: [id number]
[2017-08-21] MEDS: IPRATROPIUM BROM 0.5MG/2.5ML NEB SCH ×3 (00:45→14:00)
[2017-08-21] MEDS: ALBUTEROL 2.5 MG/3 ML NEB SOL NEB SCH ×3 (00:45→14:00)
--- NOTE | 2017-08-21 01:46 | PN ---
Date of Progress Note: 08/20/2017 Subjective: The patient was seen this morning for followup, lying in bed, not in distress. No new c omplaints or problems reported by her. Objective: Vital Signs: Reviewed. HEENT: Unremarkable. Lungs: Clear to auscultation. Heart: Sounds normal. Abdomen: Soft. Bowel sounds normal. No guarding, rigidity, tenderness, or distention. Extremities: No leg edema. Diagnostic Data: Echocardiogram from yesterday showing ejection fraction 60%-69%. Left ventricular hypertrophy. Mitral and tricuspid regurgitation. Impression: 1.Pneumonia. 2.Atrial fibrillation, paroxysmal. 3.Hypertension. 4.Hypothyroidism. Plan: We will continue current medications. Continue current antibiotics. The patient was on sotal ol 80 mg twice a day but as of this evening dose was reduced to 40 mg twice a day because of bradycar ta problem. I will see her tomorrow for followup and possible discharge to go home tomorrow. HOUSTON/MODL Voice ID: [id number] Report ID: [id number]
[2017-08-21 04:55] VITALS: O2SAT 96
[2017-08-21 04:55] LABS: Absolute Lymphocytes (CBC) 1.5 K/uL (0.7-4.9); Absolute Monocytes 0.9 K/uL (0.1-1.3); Absolute Neutrophil 9.6 K/uL (1.8-8.0); Basophils % 0.4 % (0-1.3); Hematocrit 33.4 % (36.0-45.0); Lymphocytes % 12.5 % (15.3-44.8); MCH 31.3 pg (27.0-35.0); MCV 92.3 fL (80-100); MPV 10.3 fL (7.6-11.3); Monocytes % 7.3 % (3.3-12.3); RBC Red Blood Cell Count 3.61 M/uL (3.86-4.86)
[2017-08-21 04:58] LABS: Magnesium 1.9 mg/dL (1.8-2.5); Potassium 4.8 mEq/L (3.6-5.0)
[2017-08-21 05:12] LABS: Platelet Estimate ADEQ
[2017-08-21 05:13] LABS: Blood Morphology Comment NOT SEEN (NOT SEEN)
[2017-08-21] MEDS: SOTALOL HCL 80 MG TAB PO SCH ×2 (05:28→18:31)
[2017-08-21] MEDS: ENOXAPARIN 60 MG/0.6 ML SQ SCH (05:28)
[2017-08-21] MEDS: ASPIRIN EC 81 MG TAB PO SCH (09:42)
[2017-08-21] MEDS: POTASSIUM 25 MEQ EFFERV TAB PO SCH (09:43)
[2017-08-21] MEDS: HYDRALAZINE HCL 10 MG TABLET PO SCH (09:44)
[2017-08-21] MEDS: FAMOTIDINE 20 MG TAB PO SCH (09:44)
[2017-08-21] MEDS: CEFTRIAXONE/SWI 1gm 1 GM/10 ML SYR IV SCH (09:45)
--- NOTE | 2017-08-21 10:20 | RAD REPORT ---
EXAM DESCRIPTION: RAD - Chest Pa And Lat (2 Views) - 08/21/2017 9:34 am CLINICAL HISTORY: Pneumonia COMPARISON: August 19August 18 portable chest, portable chest July 22 ; CT chest August 18 TECHNIQUE: PA and lateral views of the chest were obtained. FINDINGS: The lungs are normal volume. Patient has a baseline mild fibrotic lung pattern. In the mid and upper lung will there is no infiltrate or mass. No failure or volume overload. Interstitial s tranding is present in both posterior lung bases. Minimal costophrenic angle blunting seen. Heart siz e is normal and central vasculature is within normal limits. No pneumothorax. No acute bony finding noted. No aortic abnormality. IMPRESSION: Chronic bibasilar lung disease with focally more pronounced parenchymal opacification in the posterior and posteromedial right lung base. Right lung base small pneumonia superimposed on chronic lung disease is suspected. Lung parenchymal f indings are not substantially different from the August 18 CT study.
[2017-08-21] MEDS ORDERED: MAXZIDE (HCTZ 25/TRIAMTERENE 37.5MG) TAB PO ONE (12:15)
[2017-08-21] MEDS ORDERED: AMLODIPINE 5 MG TAB PO ONE (16:00)
[2017-08-21 20:10] VITALS: BP 144/65; TEMP 97.8
--- NOTE | 2017-08-22 05:26 | DS ---
Date of Discharge: 08/21/2017 Disposition: Discharged to go home. Physical Examination: HEENT: Unremarkable. Lungs: Clear to auscultation. Heart: Sounds normal. Abdomen: Soft, bowel sounds normal. No guarding, rigidity, tenderness, or distention. Extremities: No leg edema. Hospital Course: An 87-year-old female patient, admitted to the hospital with complaints of shortnes s of breath. Please see dictated H and P for more information. After the patient was evaluated in [facility] emergency room, she was admitted to the hospital with problem of atrial fibrillation with rapid ve ntricular rate and pneumonia. Cardiology consultation was obtained. The patient was treated with IV antibiotics and dental officer started her on sotalol 80 mg 2 times a day, and she did convert to sinu s rhythm with this medication. Yesterday evening, nurse contacted me with concern about bradycardia with heart rate anywhere between 55-59, and we reduced the dose of sotalol from 80 mg twice a day to 40 mg twice a day. She still rem ains in sinus rhythm now. A CAT scan of the chest when she came in showed mild right lower lobe opac ity. Echocardiogram showed normal ejection fraction. Pin[employer] Wheel [employer]er has cleared her for discharge. S he received Lovenox during this hospitalization. No need for outpatient anticoagulation therapy per my discussion with dental officer, Dr. Arreola. The patient will continue aspirin. We will go ahead a nd follow up on outpatient basis. After I wrote the discharge order this morning, the patient's bloo d pressure started going up. It was up to 198/80, something on the diastolic and she was given her t riamterene/HCTZ that helped to lower the blood pressure down to 170 systolic range and amlodipine 5 m g p.o. x1 dose was given and then her systolic blood pressure came down to 160. The patient was feel ing fine, wanted to go home, and she is medically stable for discharge. Final Diagnoses: 1.Pneumonia. 2.Paroxysmal atrial fibrillation. 3.Hypertension. 4.Hyperlipidemia. 5.Hypothyroidism. 6.Osteoarthritis, multiple sites. Laboratory Data: White count when she came in was 14.4, hemoglobin 12.9, platelets 210. Last white count today 12.1, hemoglobin 11.3, platelets 193. Troponin less than 0.03, procalcitonin 0.23. Last chemistry today sodium 144, potassium 4.8, chlorid e 111, bicarb 27, BUN 24, creatinine 0.88, glucose 88, magnesium 1.9. Discharge Medications And Instructions: 1.Continue all prior home medication except stop metoprolol. 2.Start sotalol 80 mg. The patient to take half a tablet 2 times a day and take amlodipine 5 mg p.o . daily. 3.Augmentin 875 mg twice a day for 1 week. 4.Follow up at my office a week after. 5.Follow with Dr. Correia in 2-3 weeks. HOUSTON/MODL Voice ID: [id number] Report ID: [id number]
== END 2017-08-21 19:40 | disposition home or self-care (01) | DRG 194 ==
LOC: ER 13:25 → ERHOLD 16:10 → 4TH 18:08
PROVIDERS: ADMIT Internal Medicine; ATTEND Internal Medicine
DX: J18.9 Pneumonia, unspecified organism (principal); I50.32 Chronic diastolic (congestive) heart failure; I48.0 Paroxysmal atrial fibrillation; E78.5 Hyperlipidemia, unspecified; E03.9 Hypothyroidism, unspecified; M19.90 Unspecified osteoarthritis, unspecified site; R00.1 Bradycardia, unspecified; I11.0 Hypertensive heart disease with heart failure; K21.9 Gastro-esophageal reflux disease without esophagitis
CPT/HCPCS: 36415; 71045; 71046; 71250; 80048; 80076; 81003; 82550; 82553; 83690; 83735; 83880; 84145; 84443; 84484; 85025; 85610; 85730; 87040; 87070; 87205; 87804; 93005; 93306; 94640; 96361; 96365; 96367; 96372; 96375; 99285; J0456; J0696; J1650; J2920; J2930; J7030

== ENCOUNTER 2017-12-06 10:09 | Emergency (ER) | payer OTHER ==
--- NOTE | 2017-12-06 12:09 | RAD REPORT ---
EXAM DESCRIPTION: US - UPPER EXTREMITY VENOUS UNILATE - 12/06/2017 11:45 am CLINICAL HISTORY: PAIN Left arm pain and swelling. COMPARISON: No comparisons FINDINGS: Left upper extremity venous system was interrogated with Doppler technique. Normal flow, c ompressibility and augmentation was noted. There is no DVT present. IMPRESSION: No evidence of left upper extremity deep venous thrombosis.
--- NOTE | 2017-12-06 12:20 | ER ---
Nurse's Notes [facility] Name: Grisel Ray Age: 87 yrs Sex: Female : 1930 Arrival Date: 12/06/2017 Time: 10:12 Bed 13 Private MD: Titus Coats C Diagnosis: Pain in left wrist Presentation: 12/06 10:15 Presenting complaint: Patient states: left arm pain since this morning. Pt denies known aa5 injury, denies chest pain. 10:15 Transition of care: patient was not received from another setting of care. Onset of aa5 symptoms was December 06, 2017. Risk Assessment: Do you want to hurt yourself or someone else? Patient reports no desire to harm self or others. Initial Sepsis Screen: Does the patient meet any 2 criteria? No. Patient's initial sepsis screen is negative. Does the patient have a suspected source of infection? No. Patient's initial sepsis screen is negative. Care prior to arrival: None. 10:15 Method Of Arrival: Ambulatory aa5 10:15 Acuity: DAYRON 3 aa5 Historical: - Allergies: 10:15 No Known Allergies; aa5 - PMHx: 10:15 GERD; Hyperlipidemia; Hypertension; Hypothyroidism; osteoarthritis; aa5 - PSHx: 10:15 Cholecystectomy; aa5 - Immunization history:: Pneumococcal vaccine is up to date, Flu vaccine is up to date. - Social history:: Smoking status: Patient/guardian denies using tobacco. - Ebola Screening: : No symptoms or risks identified at this time. Screenin:35 Abuse screen: Denies threats or abuse. Nutritional screening: No deficits noted. aa5 Tuberculosis screening: No symptoms or risk factors identified. Fall Risk None identified. Assessment: 10:15 General: Appears uncomfortable, Behavior is calm, cooperative. Pain: Complains of pain aa5 in left arm and left hand Pain does not radiate. Pain currently is 8 out of 10 on a pain scale. Quality of pain is described as aching, Pain began this morning Is continuous, Aggravated by increased activity. Neuro: Level of Consciousness is awake, alert, obeys commands, Oriented to person, place, time, situation, Denies paresthesias numbness. Cardiovascular: Denies chest pain, shortness of breath, Heart tones S1 S2 present Rhythm is regular. Respiratory: Airway is patent Respiratory effort is even, unlabored, Respiratory pattern is regular, symmetrical, Breath sounds are clear bilaterally. GI: No signs and/or symptoms were reported involving the gastrointestinal system. : No signs and/or symptoms were reported regarding the genitourinary system. EENT: No signs and/or symptoms were reported regarding the EENT system. Derm: Skin is pink, warm \T\ dry. Musculoskeletal: Range of motion: intact in all extremities. 10:43 Reassessment: Warm compress applied to left wrist . aa5 11:42 Reassessment: Pt back from US via wheelchair . aa5 12:00 Reassessment: Patient and/or family updated on plan of care and expected duration. Pain aa5 level reassessed. Patient is alert, oriented x 3, equal unlabored respirations, skin warm/dry/pink. Patient denies pain at this time. Patient states feeling better. Patient states symptoms have improved. 12:19 Reassessment: Velcro Wrist splint applied to left wrist . aa5 12:38 Reassessment: Patient is alert, oriented x 3, equal unlabored respirations, skin aa5 warm/dry/pink. Vital Signs: 10:15 BP 169 / 68; Pulse 53; Resp 16 S; Temp 98.0(TE); Pulse Ox 96% on R/A; Weight 63.5 kg aa5 (R); Height 5 ft. 1 in. (154.94 cm) (R); Pain 8/10; 11:00 BP 129 / 50; Pulse 50; Resp 18 S; Pulse Ox 95% on R/A; aa5 12:00 BP 134 / 61; Pulse 48; Resp 16 S; Pulse Ox 96% on R/A; Pain 0/10; aa5 10:15 Body Mass Index 26.45 (63.50 kg, 154.94 cm) aa5 ED Course: 10:12 Patient arrived in ED. mr 10:12 Titus Coats MD is Private Physician. mr 10:15 Arm band placed on Patient placed in an exam room, on a stretcher. aa5 10:15 Patient has correct armband on for positive identification. Bed in low position. Call aa5 light in reach. Side rails up X2. Adult w/ patient. 10:20 [facility]C [facility] snw 10:20 Paulo Bocanegra MD is Attending Physician. snw 10:23 Destinee Gabriel, RN is Primary Nurse. aa5 10:24 Triage completed. aa5 10:36 EKG done, by test and turn up technician. reviewed by Leelee CHILDRESS. 3 11:45 UPPER EXTREMITY VENOUS UNILATE In Process Unspecified. EDMS 12:19 Titus Coats MD is Referral Physician. snw 12:25 Velcro wrist splint applied to left wrist. 3 12:38 No provider procedures requiring assistance completed. Patient did not have IV access aa5 during this emergency room visit. Administered Medications: 10:54 Drug: [place]ett 5 mg-325 mg 1 tabs Route: PO; aa5 12:00 Follow up: Response: No adverse reaction; Marked relief of symptoms aa5 Outcome: 12:19 Discharge ordered by MD. snw 12:38 Discharged to home ambulatory, with family. aa5 12:38 Condition: stable 12:38 Discharge instructions given to patient, Instructed on discharge instructions, follow up and referral plans. medication usage, Demonstrated understanding of instructions, follow-up care, medications, Prescriptions given X 1. 12:40 Patient left the ED. aa5 Signatures: Dispatcher [employer] EDAK Leelee Duffy FNP-C ENTRY TABLE OPERATOR-Csnw ArmstrongJanette mr Destinee Gabriel, RN RN aa5 Gilda Edge 3 Siena Dubois 3 Corrections: (The following items were deleted from the chart) 11:32 10:35 General: Appears uncomfortable, Behavior is calm, cooperative, aa5 aa5 11:32 10:35 Pain: Complains of pain in left arm and left hand Pain does not radiate. Pain aa5 Quality of pain is described as aching, Pain began this morning Is continuous, Aggravated by increased activity, aa5 11:32 10:35 Neuro: Level of Consciousness is awake, alert, obeys commands, Oriented to aa5 person, place, time, situation, Denies paresthesias numbness aa5 11:32 10:35 Cardiovascular: Denies chest pain, shortness of breath, Heart tones S1 S2 present aa5 Rhythm is regular aa5 11:32 10:35 Respiratory: Airway is patent Respiratory effort is even, unlabored, Respiratory aa5 pattern is regular, symmetrical, Breath sounds are clear bilaterally. aa5 11:32 10:35 GI: No signs and/or symptoms were reported involving the gastrointestinal system. aa5 aa5 10:35 : No signs and/or symptoms were reported regarding the genitourinary system. aa5aa5 : 10:35 EENT: No signs and/or symptoms were reported regarding the EENT system. aa5 aa5 : 10:35 Derm: Skin is pink, warm \T\ dry. aa5 aa5 : 10:35 Musculoskeletal: Range of motion: intact in all extremities, aa5 aa5 13:19 12:10 Reassessment: Velcro Wrist splint applied to left wrist . aa5 aa5
--- NOTE | 2017-12-06 12:20 | EDPHYS ---
Physician Documentation [facility] Name: Grisel Ray Age: 87 yrs Sex: Female : 1930 Arrival Date: 12/06/2017 Time: 10:12 Bed 13 Private MD: Titus Coats C ED Physician Paulo Bocanegra HPI: 12/06 10:42 This 87 yrs old Female presents to ER via Ambulatory with complaints of Arm snw Pain. 10:42 The patient or guardian complains of pain, that is acute. The complaints affect the snw left wrist and left hand. Context: The problem was sustained at home, resulted from unknown cause. Onset: The symptoms/episode began/occurred suddenly, this morning. Associated signs and symptoms: The patient has no apparent associated signs or symptoms. Severity of symptoms: At their worst the symptoms were moderate. The patient has not experienced similar symptoms in the past. It is unknown whether or not the patient has recently seen a physician. currently on abx for infected ingrown toenail (right). Historical: - Allergies: 10:15 No Known Allergies; aa5 - PMHx: 10:15 GERD; Hyperlipidemia; Hypertension; Hypothyroidism; osteoarthritis; aa5 - PSHx: 10:15 Cholecystectomy; aa5 - Immunization history:: Pneumococcal vaccine is up to date, Flu vaccine is up to date. - Social history:: Smoking status: Patient/guardian denies using tobacco. - Ebola Screening: : No symptoms or risks identified at this time. ROS: 10:41 Constitutional: Negative for fever, chills, and weight loss, Eyes: Negative for injury, snw pain, redness, and discharge, ENT: Negative for injury, pain, and discharge, Neck: Negative for injury, pain, and swelling, Cardiovascular: Negative for chest pain, palpitations, and edema, Respiratory: Negative for shortness of breath, cough, wheezing, and pleuritic chest pain, Abdomen/GI: Negative for abdominal pain, nausea, vomiting, diarrhea, and constipation, Back: Negative for injury and pain, : Negative for injury, bleeding, discharge, and swelling, Skin: Negative for injury, rash, and discoloration, Neuro: Negative for headache, weakness, numbness, tingling, and seizure, Psych: Negative for depression, anxiety, suicide ideation, homicidal ideation, and hallucinations. 10:41 MS/extremity: Positive for pain, tenderness, of the left hand and palmar aspect of left wrist. Exam: 10:40 Constitutional: This is a well developed, well nourished patient who is awake, alert, snw and in no acute distress. Head/Face: Normocephalic, atraumatic. Eyes: Pupils equal round and reactive to light, extra-ocular motions intact. Lids and lashes normal. Conjunctiva and sclera are non-icteric and not injected. Cornea within normal limits. Periorbital areas with no swelling, redness, or edema. ENT: Nares patent. No nasal discharge, no septal abnormalities noted. Tympanic membranes are normal and external auditory canals are clear. Oropharynx with no redness, swelling, or masses, exudates, or evidence of obstruction, uvula midline. Mucous membranes moist. Neck: Trachea midline, no thyromegaly or masses palpated, and no cervical lymphadenopathy. Supple, full range of motion without nuchal rigidity, or vertebral point tenderness. No Meningismus. Chest/axilla: Normal chest wall appearance and motion. Nontender with no deformity. No lesions are appreciated. Cardiovascular: Regular rate and rhythm with a normal S1 and S2. No gallops, murmurs, or rubs. Normal PMI, no JVD. No pulse deficits. Respiratory: Lungs have equal breath sounds bilaterally, clear to auscultation and percussion. No rales, rhonchi or wheezes noted. No increased work of breathing, no retractions or nasal flaring. Abdomen/GI: Soft, non-tender, with normal bowel sounds. No distension or tympany. No guarding or rebound. No evidence of tenderness throughout. Back: No spinal tenderness. No costovertebral tenderness. Full range of motion. Skin: Warm, dry with normal turgor. Normal color with no rashes, no lesions, and no evidence of cellulitis. Neuro: Awake and alert, GCS 15, oriented to person, place, time, and situation. Cranial nerves II-XII grossly intact. Motor strength 5/5 in all extremities. Sensory grossly intact. Cerebellar exam normal. Normal gait. Psych: Awake, alert, with orientation to person, place and time. Behavior, mood, and affect are within normal limits. 10:40 Musculoskeletal/extremity: Extremities: grossly normal except: noted in the palmar aspect of left wrist: decreased ROM, swelling, tenderness. Vital Signs: 10:15 BP 169 / 68; Pulse 53; Resp 16 S; Temp 98.0(TE); Pulse Ox 96% on R/A; Weight 63.5 kg aa5 (R); Height 5 ft. 1 in. (154.94 cm) (R); Pain 8/10; 11:00 BP 129 / 50; Pulse 50; Resp 18 S; Pulse Ox 95% on R/A; aa5 12:00 BP 134 / 61; Pulse 48; Resp 16 S; Pulse Ox 96% on R/A; Pain 0/10; aa5 10:15 Body Mass Index 26.45 (63.50 kg, 154.94 cm) aa5 MDM: 10:43 Patient medically screened. snw 11:24 Data reviewed: vital signs, nurses notes. Data interpreted: Pulse oximetry: on room air snw is 96 %. Interpretation: normal. Counseling: I had a detailed discussion with the patient and/or guardian regarding: the historical points, exam findings, and any diagnostic results supporting the discharge/admit diagnosis, the presence of at least one elevated blood pressure reading (>120/80) during this emergency department visit, the need for outpatient follow up. ED course: pt to US via wc. 12:18 Response to treatment: the patient's symptoms have markedly improved after treatment, snw and as a result, I will discharge patient, with wrist splint. 12/06 11:06 Order name: UPPER EXTREMITY VENOUS UNILATE; Complete Time: 12:13 EDMS 12/06 10:40 Order name: Misc. Order: warm compress to wrist; Complete Time: 10:43 snw 12/06 12:13 Order name: Wrist Splint: left wrist; Complete Time: 12:19 snw Administered Medications: 10:54 Drug: [place] 5 mg-325 mg 1 tabs Route: PO; aa5 12:00 Follow up: Response: No adverse reaction; Marked relief of symptoms aa5 Disposition: 15:45 Co-signature as Attending Physician, Paulo Bocanegra MD. rn Disposition: 12/06/17 12:19 Discharged to Home. Impression: Pain in left wrist. - Condition is Stable. - Discharge Instructions: Wrist Pain, Wrist Splint, Heat Therapy. - Prescriptions for Tylenol- Codeine #3 300-30 mg Oral Tablet - take 2 tablet by ORAL route every 6 hours As needed; 6 tablet. - Medication Reconciliation Form, Thank You Letter, Antibiotic Education, Prescription Opioid Use form. - Follow up: Titus Coats MD; When: 2 - 3 days; Reason: Recheck today's complaints, Continuance of care, Re-evaluation by your physician. Follow up: Emergency Department; When: As needed; Reason: Worsening of condition. Signatures: Dispatcher [employer] [facility] Leelee Duffy, PUBLIC INFORMATION COORDINATOR-C PUBLIC INFORMATION COORDINATOR-Csnw Paulo Bocanegra MD MD rn Calderon, Audri RN RN aa5 Corrections: (The following items were deleted from the chart) 11:06 10:41 Extremity Venous Uni [email or web address] ordered. [facility] 12:40 12:19 12/06/2017 12:19 Discharged to Home. Impression: Pain in left wrist. Condition is aa5 Stable. Forms are Medication Reconciliation Form, Thank You Letter, Antibiotic Education, Prescription Opioid Use. Follow up: Titus Coats; When: 2 - 3 days; Reason: Recheck today's complaints, Continuance of care, Re-evaluation by your physician. Follow up: Emergency Department; When: As needed; Reason: Worsening of condition. snw
[2017-12-06 12:59] VITALS: TEMP 98
[2017-12-06 13:02] VITALS: BP 134/61; O2SAT 96
--- NOTE | 2017-12-06 15:02 | EKG ---
Test Date: 2017-12-06 Test Time: 10:28:08 [employer] Database Administrator: MARCELA MEASUREMENT RESULTS: Intervals: Rate: 52 MS: 182 QRSD: 98 QT: 494 QTc: 459 [place]: P: 64 MS: 182 QRS: 70 T: 35 INTERPRETIVE STATEMENTS: Sinus bradycardia ST & T wave abnormality, non specific Abnormal ECG Compared to ECG 08/19/2017 08:18:20 Sinus rhythm no longer present Atrial premature complex(es) no longer present ST (T wave) deviation still present Electronically Signed On 12-06-17 15:01:43 CDT by Lars Correia
== END 2017-12-06 12:40 | disposition home or self-care (01) ==
LOC: ER 10:09
DX: M25.532 Pain in left wrist (principal); I10 Essential (primary) hypertension
CPT/HCPCS: 93005; 93971; 99284